=== PATIENT | male | born 1945 | race Caucasian/White ===

== ENCOUNTER 2021-03-31 12:39 | Inpatient (IN) | payer MEDICARE, OTHER ==
--- NOTE | 2021-03-31 13:44 | CR ---
Indication: Hypoxia Comparison: None available. Technique: Single AP view chest Findings: There is hyperinflation and chronic interstitial change. There is no focal consolidation, effusion, or pneumothorax. The cardiomediastinal silhouette is within normal limits. The bony thorax is grossly intact. Impression: Hyperinflation and chronic interstitial change without evidence of dense consolidation. Dictated by Casey Storey MD @ 03/31/2021 1:43:[address] Casey Storey @ Mar 31 2021 1:43PM
[2021-03-31 13:47] LABS: BLOOD UREA NITROGEN,BUN 45 mg/dL (7.0-18.0); CARBON DIOXIDE,CO2 16.6 mmol/L (21.0-32.0); CHLORIDE,CL 102 mmol/L (98-107); GLUCOSE RANDOM 181 mg/dL (74-106); SODIUM,NA 131 mmol/L (136-148)
[2021-03-31] MEDS ORDERED: Levothyroxine 100 MCG Vial IVPUSH ONE (14:08)
[2021-03-31] MEDS ORDERED: Hydrocortisone Sodium Succinate 100 MG/2 ML SDV IVPUSH ONE (14:09)
[2021-03-31] MEDS: Dextrose 5%-Lactated Ringers 1,000 ML IV SCH (14:38)
[2021-03-31] MEDS ORDERED: SODIUM CHLORIDE 0.9% IV ONE (14:45)
[2021-03-31] MEDS ORDERED: LEVOTHYROXINE IV ONE (14:45)
--- NOTE | 2021-03-31 16:36 | CT ---
INDICATION: Trauma, fall. TECHNIQUE: Head CT without contrast. COMPARISON: None FINDINGS: CSF spaces: Within normal limits for age. Brain parenchyma and extra-axial spaces: There are nonspecific low attenuation white matter changes consistent with chronic microvascular disease. No sign of mass, hemorrhage, or midline shift. Skull base and calvarium: The visualized paranasal sinuses and mastoid air cells demonstrate no acute or significant findings. The visualized orbits are grossly unremarkable. No skull fractures. IMPRESSION: No sign of acute injury or other significant finding. Please note that all CT scans at this facility use dose modulation, iterative reconstruction, and/or weight-based dosing when appropriate to reduce radiation dose to as low as reasonably achievable. Dictated by Eliseo Mooney MD @ 03/31/2021 4:35:[address] Eliseo Mooney @ Mar 31 2021 4:35PM
[2021-03-31] MEDS ORDERED: Ondansetron 4 MG Tab.DIS PO PRN (17:59)
[2021-03-31] MEDS ORDERED: LORazepam 2 MG/ML SDV IVPUSH ONE (18:46)
[2021-03-31] MEDS ORDERED: LORazepam 2 MG/ML SDV IVPUSH PRN (19:02)
[2021-03-31] MEDS: Acetaminophen 325 MG Tab PO PRN ×2 (19:07→23:59)
--- NOTE | 2021-03-31 19:26 | PCM.HP.2 ---
<Roque Turcios - Last Filed: 03/31/21 19:52> H&P History of Present Illness - General Date of Service: 03/31/21 Admit Problem/Dx: Admission Diagnosis/Problem Admission Diagnosis/Problem Hypothyroidism Source of Information: Patient, Family - History of Present Illness Initial Comments - Free Text/Narative: Patient is a 75-year-old male with a significant past medical history of type 2 diabetes, daily alcohol use, tobacco abuse and unexplained weight loss since August 2020: Presenting today with daughter's recommendation secondary to low blood sugar. Blood glucose this morning per daughter was 24 and episodes of hypoglycemia and dizziness have been ongoing since September 2020. Ambulatory dysfunction with increased episodes of falls were always attributed to low blood glucose especially since patient did respond to food/carbohydrate rich liquids thereafter. Patient will that was last seen by his primary care back in August 2020. Daughter endorses a fall 2 weeks prior causing abrasion over left scalp; this was an unwitnessed fall and patient did not have any subsequent symptoms per daughter. Since he seemed at baseline per daughter; they did not proceed to the ED at that time. Of note patient also did not take any of his diabetic medications including his Metformin and glimepiride for the past 3 weeks secondary to his low blood sugars. Alcohol use: 1-2 Guinness/beer per night with beer/wine Has been using edible marijuana treats to help increase appetite x 1 -month but this has not been helping. Weight loss: Patient is currently 77 pounds but was 95 pounds per daughter in August 2020 ED course: Blood pressure 107/59, bradycardia with a pulse rate of 56. Low temperature of 94.9 Lethargic Chest x-ray: Hyperinflation chronic interstitial change without evidence of dense consolidation CT head: No acute sign of acute injury and or significant findings Labs: Mild hyponatremia of 131. SHAHEEN of 1.9. Significantly elevated TSH of 29.89 and a free T4 0.75. Patient was given 100 mcg IV of levothyroxine and 100 mg of hydrocortisone 1 time patient was also subsequently started on D5-Lr 100 cc/hr Bedside: Daughter and patient endorses similar story as above. Does complain of restless leg and tingling in the feet and some discomfort in the lower back. Endorses low appetite but would like to drink some "guinny". Misses meals frequently and has at best 1/3 of a meal per day Bilateral Leg Pain Score (Numeric/FACES): 5 - Related Data Allergies/Adverse Reactions: Allergies Allergy/AdvReac Type Severity Reaction Status Date / Time No Known Allergies Allergy Verified 03/31/21 17:09 Home Medications: Home Meds Enalapril Maleate 10 mg PO DAILY 11/14/15 [History] Glimepiride [Amaryl] 1 mg PO DAILY 11/14/15 [History] metFORMIN [Glucophage XR] 500 mg PO BID 11/14/15 [History] Albuterol Sulfate 1 puff IN ASDIRECTED 03/31/21 [History] Montelukast [Singulair] 10 mg PO BEDTIME 03/31/21 [History] buPROPion HCL [Bupropion HCl Sr] 150 mg PO DAILY 03/31/21 [History] Past Medical History HEENT History: Reports: Hard of Hearing, Impaired Vision, Other (See Below) Other HEENT History: "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" Cardiovascular History: Reports: Hypertension Respiratory History: Reports: None Gastrointestinal History: Reports: Other (See Below) Other Gastrointestinal History: history of ulcers Genitourinary History: Reports: None Musculoskeletal History: Reports: Gout Neurological History: Reports: None, Other (See Below) Other Neuro History: Restless legs Psychiatric History: Reports: None Endocrine/Metabolic History: Reports: Diabetes, Type II Hematologic History: Reports: None Immunologic History: Reports: None Oncologic (Cancer) History: Reports: None Dermatologic History: Reports: None - Infectious Disease History Infectious Disease History: Reports: Chicken Pox, Mumps Other Infectious Disease History: childhood - Past Surgical History Head Surgeries/Procedures: Reports: None HEENT Surgical History: Reports: None Cardiovascular Surgical History: Reports: None Respiratory Surgical History: Reports: None GI Surgical History: Reports: EGD Male Surgical History: Reports: None Endocrine Surgical History: Reports: None Neurological Surgical History: Reports: None Musculoskeletal Surgical History: Reports: None Oncologic Surgical History: Reports: None Dermatological Surgical History: Reports: None Social & Family History - Family History Family Medical History: No Pertinent Family History Cardiac: Reports: [place] OBGYN: Reports: Endocrine/Metabolic: Reports: Diabetes, Type I - Tobacco Use Tobacco Use Status *Q: Current Every Day Tobacco User Years of Tobacco use: 50 Packs/Tins Daily: 0.5 - Caffeine Use Caffeine Use: Reports: Coffee - Alcohol Use Number of Drinks Per Day: 2 - Recreational Drug Use Recreational Drug Use: Yes Drug Use in Last 12 Months: Yes Recreational Drug Type: Reports: Marijuana/Hashish Recreational Drug Use Frequency: Daily H&P Review of Systems - Review of Systems: Review Of Systems: See Below General: Reports: Weakness, Fatigue. Denies: Fever, Chills HEENT: Reports: Headaches Pulmonary: Reports: No Symptoms Cardiovascular: Reports: Dyspnea on Exertion Gastrointestinal: Reports: Abdominal Pain, Constipation, Decreased Appetite. Denies: Diarrhea Genitourinary: Reports: No Symptoms Musculoskeletal: Reports: Back Pain, Leg Pain, Foot Pain Skin: Reports: Wound Psychiatric: Denies: Confusion Neurological: Reports: Weakness Hematologic/Lymphatic: Reports: Easy Bruising Exam - Exam Exam: See Below - Vital Signs Vital Signs: Last Vital Signs Temp 96.7 F L 03/31/21 17:18 Pulse 60 03/31/21 17:18 Resp 20 03/31/21 17:18 BP 107/57 L 03/31/21 17:18 Pulse Ox 100 03/31/21 17:18 Weight: 34.473 kg - Exam Quality Assessment: Skin Breakdown, Other (asthenic habitus; significant signs of weight loss/calorie deficiency ). No: Supplemental Oxygen General: Alert, Oriented, Mild Distress HEENT: EOMI, Mucosa Moist & [place] Neck: Supple, Trachea Midline Lungs: Clear to Auscultation, Normal Respiratory Effort Cardiovascular: Regular Rhythm, Bradycardia GI/Abdominal Exam: Soft, Other (mild tenderness w.o rebound tenderness diffusely ) Back Exam: Other (significant malnutrition w. low muscle mass: multiple area of skin breakdowns noted over lower back/sacrum ; ) Extremities: Other (low muscle mass: left foot : linear skin breakdow w. black escar noted over plantar aspect of fooot; overgrown toenails bilaterally..right foot: 1 cm circular black eschar noted over heel w.o surrounding erthema and or fluctuance . sensation intact tenderness noted over bilateral feet/plantar aspect) Skin: Wound Neuro Extensive - Mental Status: Alert, Oriented x3 Psychiatric: Alert, Other (lethargic but responsive ) - Patient Data Lab Results Last 24 hrs: Laboratory Results - last 24 hr 03/31/21 03/31/21 03/31/21 Range/Units 13:13 13:13 13:13 WBC 5.67 (4.0-11.0) K/uL RBC 3.15 L (4.50-5.90) M/uL Hgb 9.6 L (13.0-17.0) g/dL Hct 27.9 L (38.0-50.0) % MCV 88.6 (80.0-98.0) fL MCH 30.5 (27.0-32.0) pg MCHC 34.4 (31.0-37.0) g/dL RDW Std Deviation 49.7 (28.0-62.0) fl RDW Coeff of Ashley 16 H (11.0-15.0) % Plt Count 199 (150-400) K/uL MPV 9.60 (7.40-12.00) fL Neut % (Auto) 64.8 (48.0-80.0) % Lymph % (Auto) 23.5 (16.0-40.0) % [place] % (Auto) 8.5 (0.0-15.0) % Eos % (Auto) 3.0 (0.0-7.0) % Baso % (Auto) 0.2 (0.0-1.5) % Neut # (Auto) 3.7 (1.4-5.7) K/uL Lymph # (Auto) 1.3 (0.6-2.4) K/uL [place] # (Auto) 0.5 (0.0-0.8) K/uL Eos # (Auto) 0.2 (0.0-0.7) K/uL Baso # (Auto) 0.0 (0.0-0.1) K/uL Nucleated RBC % 0.0 /100WBC Nucleated RBCs # 0 K/uL INR 1.12 ABG pH (7.35-7.45) ABG pCO2 (35-45) mmHG ABG pO2 (80-105) mmHG ABG HCO3 (22-26) mEq/L ABG Total CO2 (23-27) mmol/L ABG Base Excess (-2.0-3.0) Sodium 131 L (136-148) mmol/L Potassium 5.0 (3.5-5.1) mmol/L Chloride 102 (98-107) mmol/L Carbon Dioxide 16.6 L (21.0-32.0) mmol/L BUN 45 H (7.0-18.0) mg/dL Creatinine 1.9 H (0.8-1.3) mg/dL Est Cr Clr Drug Dosing TNP Estimated GFR (MDRD) 34.8 ml/min Glucose 181 H (74-106) mg/dL Calcium 8.0 L (8.5-10.1) mg/dL Total Bilirubin 0.2 (0.2-1.0) mg/dL AST 94 H (15-37) IU/L ALT 34 (14-63) IU/L Alkaline Phosphatase 110 (46-116) U/L Creatine Kinase 355 H (26-308) U/L Troponin I < 0.050 (0.000-0.056) ng/mL Total Protein 6.1 L (6.4-8.2) g/dL Albumin 2.6 L (3.4-5.0) g/dL Globulin 3.5 (2.6-4.0) g/dL Albumin/Globulin Ratio 0.7 L (0.9-1.6) Free T4 0.75 L (0.76-1.46) ng/dL TSH 3rd Generation 29.89 H (0.36-3.74) uIU/mL Urine Color Urine Appearance Urine pH (5.0-8.0) Ur Specific [place] (1.001-1.035) Urine Protein (NEGATIVE) mg/dL Urine Glucose (UA) (NEGATIVE) mg/dL Urine Ketones (NEGATIVE) mg/dL Urine Occult Blood (NEGATIVE) Urine Nitrite (NEGATIVE) Urine Bilirubin (NEGATIVE) Urine Urobilinogen (<2.0) EU/dL Ur Leukocyte Esterase (NEGATIVE) SARS-CoV-2 RNA (DOMINGA) (NEGATIVE) 03/31/21 03/31/21 03/31/21 Range/Units 13:38 14:49 15:10 WBC (4.0-11.0) K/uL RBC (4.50-5.90) M/uL Hgb (13.0-17.0) g/dL Hct (38.0-50.0) % MCV (80.0-98.0) fL MCH (27.0-32.0) pg MCHC (31.0-37.0) g/dL RDW Std Deviation (28.0-62.0) fl RDW Coeff of Ashley (11.0-15.0) % Plt Count (150-400) K/uL MPV (7.40-12.00) fL Neut % (Auto) (48.0-80.0) % Lymph % (Auto) (16.0-40.0) % [place] % (Auto) (0.0-15.0) % Eos % (Auto) (0.0-7.0) % Baso % (Auto) (0.0-1.5) % Neut # (Auto) (1.4-5.7) K/uL Lymph # (Auto) (0.6-2.4) K/uL [place] # (Auto) (0.0-0.8) K/uL Eos # (Auto) (0.0-0.7) K/uL Baso # (Auto) (0.0-0.1) K/uL Nucleated RBC % /100WBC Nucleated RBCs # K/uL INR ABG pH 7.22 L (7.35-7.45) ABG pCO2 38 (35-45) mmHG ABG pO2 32 L* (80-105) mmHG ABG HCO3 15 L (22-26) mEq/L ABG Total CO2 15.1 L (23-27) mmol/L ABG Base Excess -11.6 L (-2.0-3.0) Sodium (136-148) mmol/L Potassium (3.5-5.1) mmol/L Chloride (98-107) mmol/L Carbon Dioxide (21.0-32.0) mmol/L BUN (7.0-18.0) mg/dL Creatinine (0.8-1.3) mg/dL Est Cr Clr Drug Dosing Estimated GFR (MDRD) ml/min Glucose (74-106) mg/dL Calcium (8.5-10.1) mg/dL Total Bilirubin (0.2-1.0) mg/dL AST (15-37) IU/L ALT (14-63) IU/L Alkaline Phosphatase (46-116) U/L Creatine Kinase (26-308) U/L Troponin I (0.000-0.056) ng/mL Total Protein (6.4-8.2) g/dL Albumin (3.4-5.0) g/dL Globulin (2.6-4.0) g/dL Albumin/Globulin Ratio (0.9-1.6) Free T4 (0.76-1.46) ng/dL TSH 3rd Generation (0.36-3.74) uIU/mL Urine Color YELLOW Urine Appearance CLEAR Urine pH 5.5 (5.0-8.0) Ur Specific [place] 1.025 (1.001-1.035) Urine Protein NEGATIVE (NEGATIVE) mg/dL Urine Glucose (UA) NEGATIVE (NEGATIVE) mg/dL Urine Ketones NEGATIVE (NEGATIVE) mg/dL Urine Occult Blood NEGATIVE (NEGATIVE) Urine Nitrite NEGATIVE (NEGATIVE) Urine Bilirubin NEGATIVE (NEGATIVE) Urine Urobilinogen 0.2 (<2.0) EU/dL Ur Leukocyte Esterase NEGATIVE (NEGATIVE) SARS-CoV-2 RNA (DOMINGA) NEGATIVE (NEGATIVE) Result Diagrams: 03/31/21 13:13 03/31/21 13:13 Sepsis Event Note - Evaluation Sepsis Screening Result: No Definite Risk - Focused Exam Vital Signs: Vital Signs Temp Temp Pulse Resp BP Pulse Ox 03/31/21 17:18 96.7 F L 60 20 107/57 L 100 03/31/21 16:35 96.4 F L 87 19 127/76 99 03/31/21 14:44 55 L 20 113/61 100 03/31/21 14:06 56 L 107/59 L 100 03/31/21 13:05 94.9 F L 59 L 15 93/52 L 99 - Problem List (1) Weakness SNOMED Code(s): 59845327 ICD Code: R53.1 - WEAKNESS Status: Acute Current Visit: Yes (2) Severe calorie deficiency SNOMED Code(s): 701382736 ICD Code: E43 - UNSPECIFIED SEVERE PROTEIN-CALORIE MALNUTRITION Status: Acute Current Visit: Yes (3) Severe hypothyroidism SNOMED Code(s): 70721822 ICD Code: E03.8 - OTHER SPECIFIED HYPOTHYROIDISM Status: Acute Current Visit: Yes (4) Alcohol abuse SNOMED Code(s): 04486757 ICD Code: F10.10 - ALCOHOL ABUSE, UNCOMPLICATED Status: Acute Current Visit: Yes (5) Diabetes mellitus SNOMED Code(s): 07063193 ICD Code: E11.9 - TYPE 2 DIABETES MELLITUS WITHOUT COMPLICATIONS Status: Acute Current Visit: No Problem List Initiated/Reviewed/Updated: Yes Orders Last 24hrs: Active Orders 24 hr Category Date Time Status Admission Status [Patient Status] [ADT] Stat ADT 03/31/21 15:45 Active Blood Glucose Check, Bedside [RC] TIDMEALS Care 03/31/21 17:59 Active CIWAA Assessment [RC] ASDIRECTED Care 03/31/21 18:45 Active EKG Documentation Completion [RC] STAT Care 03/31/21 12:50 Active Oxygen Therapy [RC] PRN Care 03/31/21 17:18 Active Oxygen Therapy [RC] PRN Care 03/31/21 17:59 Active Telemetry Monitoring [Cardiac Monitoring] [RC] . Care 03/31/21 18:32 Active DIRECTED Up With Assistance [RC] ASDIRECTED Care 03/31/21 17:18 Active VTE/DVT Education [RC] PER UNIT ROUTINE Care 03/31/21 17:18 Active VTE/DVT Education [RC] PER UNIT ROUTINE Care 03/31/21 17:59 Active Vital Signs [RC] Q4H Care 03/31/21 17:18 Active Vital Signs [RC] Q4H Care 03/31/21 17:59 Active Consult to Wound Care Services [CONS] Routine Cons 03/31/21 18:36 Active Regular Diet [DIET] Diet 03/31/21 Dinner Active CBC WITH AUTO DIFF [HEME] AM Lab 04/01/21 05:11 Ordered CBC WITH AUTO DIFF [HEME] AM Lab 04/02/21 05:11 Ordered CBC WITH AUTO DIFF [HEME] AM Lab 04/03/21 05:11 Ordered COMPREHENSIVE METABOLIC PN,CMP [CHEM] AM Lab 04/01/21 05:11 Ordered TSH [CHEM] AM Lab 04/01/21 05:11 Ordered TSH [CHEM] AM Lab 04/02/21 05:11 Ordered TSH [CHEM] AM Lab 04/03/21 05:11 Ordered Acetaminophen [TylenoL] Med 03/31/21 17:59 Active 650 mg PO Q4H PRN Dextrose 5%-Lactated Ringers 1,000 ml Med 03/31/21 14:30 Active IV ASDIRECTED LORazepam [Ativan] Med 03/31/21 19:02 Active See Protocol IVPUSH Q4H PRN Multivitamins [Tab-A-Nacho] Med 04/01/21 09:00 Active 1 tab PO DAILY Nicotine [Habitrol] Med 04/01/21 09:00 Active 7 mg TRDERM DAILY Ondansetron [Zofran ODT] Med 03/31/21 17:59 Active 4 mg PO Q4H PRN buPROPion [Wellbutrin SR] Med 04/01/21 09:00 Active 150 mg PO DAILY Foot Pump [OM.PC] Per Unit Routine Oth 03/31/21 18:00 Ordered Resuscitation Status Routine Resus Stat 03/31/21 17:59 Ordered Medication Orders Acetaminophen (Acetaminophen 325 Mg Tab) 650 mg PO Q4H PRN PRN Reason: Pain (Mild 1-3)/fever Last Admin: 03/31/21 19:07 Dose: 650 mg Documented by: REGINO Bupropion HCl (Bupropion 150 Mg Tab.Sr) 150 mg PO DAILY [facility] Dextrose/Lactated Ringer's (Dextrose 5%-Lactated Ringers) 1,000 mls @ 100 mls/hr IV ASDIRECTED ARELIS Last Admin: 03/31/21 14:38 Dose: 100 mls/hr Documented by: VIVIAN Lorazepam (Lorazepam 2 Mg/Ml Sdv) 0 mg IVPUSH Q4H PRN; Protocol PRN Reason: Withdrawal Symptoms Multivitamins/Minerals/Vitamin C (Multivitamin Tab) 1 tab PO DAILY [facility] Nicotine (Nicotine 7 Mg/24 Hr Patch) 7 mg TRDERM DAILY [facility] Ondansetron HCl (Ondansetron 4 Mg Tab.Dis) 4 mg PO Q4H PRN PRN Reason: nausea, able to take PO Assessment/Plan Comment:: Assessment: 1. Significant hypothyroidism 2. Normocytic anemia 3. Mild hyponatremia 4. Acute kidney injury 5. Transaminitis AST >ALT 6. Elevated creatinine kinase 7. Severe calorie deficiency 8. Decubitus ulcer 9. Tobacco abuse 10. Daily alcohol use 11. Past medical history: Type 2 diabetes Plan Admit to inpatient. DNR/DNI. I's and O's per routine. Vital signs per routine. Up with assistance Diet: Regular diet DVT prophylaxis: SCDs GI prophylaxis: Pantoprazole 40 daily 1. Symptomatic hypothyroidism: Ongoing and worsening most likely a chronic issue for quite some time. Has already received 100 mcg of levothyroxine IV; continue with 50 mcg IV levothyroxine daily and adjust accordingly; TSH rechecked daily; initiate telemetry due to T4 administration. Continue to monitor for response. Concerns about hypoglycemia, low appetite, calorie/protein deficiency could be related to significant hypothyroidism; will continue to monitor. 2. Mild hyponatremia: Replete with D5- LR; recheck in a.m. 3. Normocytic anemia: Currently stable; guaiac stool positive; however s ignificant skin breakdown ulcerations in lower back and around rectum; will continue to monitor for overt bleeding; patient may require colonoscopy if hemoglobin continues to drop. 4. SHAHEEN: Continue IV fluids; recheck BMP in a.m. 5. Transaminitis: Alcohol use pattern; initiate CIWA/Ativan protocol; continue IV fluids multivitamin and thiamine. 6. Significant caloric deficiency with low muscle mass: Ongoing chronic issue for many months; possibly as early as 2017; continue IV administration of thyroid medication, switch to full regular diet to encourage caloric intake; Continue to monitor electrolytes/cardiac function to avoid refeeding syndrome; telemetry ordered; BMP ordered in a.m. 7. Multiple areas of skin breakdown: Lower back/sacrum/gluteal cleft: Skin breakdown from low muscle mass and decreased activity; no apparent signs of infection; will offload with padding and enterostomal care has been ordered. Bilateral feet: Skin cracking with eschar noted over right foot and left plantar aspect; no overt signs of infection but tenderness is noted; may consider imaging however no overt signs of infection right now including no elevated white count. 8. Tobacco abuse: Half pack per day; 7 mcg nicotine patch ordered 9. Past medical history/type 2 diabetes: Hold all medications; monitor blood glucose; considered sliding scale insulin if needed; <Keith Pereyra - Last Filed: 03/31/21 22:12> H&P History of Present Illness - General Admit Problem/Dx: Admission Diagnosis/Problem Admission Diagnosis/Problem Hypothyroidism Exam - Vital Signs Vital Signs: Last Vital Signs Temp 35.7 C L 03/31/21 20:00 Pulse 68 03/31/21 20:00 Resp 20 03/31/21 20:00 BP 133/63 03/31/21 20:00 Pulse Ox 100 03/31/21 20:00 - Patient Data Lab Results Last 24 hrs: Laboratory Results - last 24 hr 03/31/21 03/31/21 03/31/21 Range/Units 13:13 13:13 13:13 WBC 5.67 (4.0-11.0) K/uL RBC 3.15 L (4.50-5.90) M/uL Hgb 9.6 L (13.0-17.0) g/dL Hct 27.9 L (38.0-50.0) % MCV 88.6 (80.0-98.0) fL MCH 30.5 (27.0-32.0) pg MCHC 34.4 (31.0-37.0) g/dL RDW Std Deviation 49.7 (28.0-62.0) fl RDW Coeff of Ashley 16 H (11.0-15.0) % Plt Count 199 (150-400) K/uL MPV 9.60 (7.40-12.00) fL Neut % (Auto) 64.8 (48.0-80.0) % Lymph % (Auto) 23.5 (16.0-40.0) % [place] % (Auto) 8.5 (0.0-15.0) % Eos % (Auto) 3.0 (0.0-7.0) % Baso % (Auto) 0.2 (0.0-1.5) % Neut # (Auto) 3.7 (1.4-5.7) K/uL Lymph # (Auto) 1.3 (0.6-2.4) K/uL [place] # (Auto) 0.5 (0.0-0.8) K/uL Eos # (Auto) 0.2 (0.0-0.7) K/uL Baso # (Auto) 0.0 (0.0-0.1) K/uL Nucleated RBC % 0.0 /100WBC Nucleated RBCs # 0 K/uL INR 1.12 ABG pH (7.35-7.45) ABG pCO2 (35-45) mmHG ABG pO2 (80-105) mmHG ABG HCO3 (22-26) mEq/L ABG Total CO2 (23-27) mmol/L ABG Base Excess (-2.0-3.0) Sodium 131 L (136-148) mmol/L Potassium 5.0 (3.5-5.1) mmol/L Chloride 102 (98-107) mmol/L Carbon Dioxide 16.6 L (21.0-32.0) mmol/L BUN 45 H (7.0-18.0) mg/dL Creatinine 1.9 H (0.8-1.3) mg/dL Est Cr Clr Drug Dosing TNP Estimated GFR (MDRD) 34.8 ml/min Glucose 181 H (74-106) mg/dL Hemoglobin A1c (4.5 - 6.2) % Calcium 8.0 L (8.5-10.1) mg/dL Total Bilirubin 0.2 (0.2-1.0) mg/dL AST 94 H (15-37) IU/L ALT 34 (14-63) IU/L Alkaline Phosphatase 110 (46-116) U/L Creatine Kinase 355 H (26-308) U/L Troponin I < 0.050 (0.000-0.056) ng/mL Total Protein 6.1 L (6.4-8.2) g/dL Albumin 2.6 L (3.4-5.0) g/dL Globulin 3.5 (2.6-4.0) g/dL Albumin/Globulin Ratio 0.7 L (0.9-1.6) Free T4 0.75 L (0.76-1.46) ng/dL TSH 3rd Generation 29.89 H (0.36-3.74) uIU/mL Urine Color Urine Appearance Urine pH (5.0-8.0) Ur Specific [place] (1.001-1.035) Urine Protein (NEGATIVE) mg/dL Urine Glucose (UA) (NEGATIVE) mg/dL Urine Ketones (NEGATIVE) mg/dL Urine Occult Blood (NEGATIVE) Urine Nitrite (NEGATIVE) Urine Bilirubin (NEGATIVE) Urine Urobilinogen (<2.0) EU/dL Ur Leukocyte Esterase (NEGATIVE) SARS-CoV-2 RNA (DOMINGA) (NEGATIVE) 03/31/21 03/31/21 03/31/21 Range/Units 13:13 13:38 14:49 WBC (4.0-11.0) K/uL RBC (4.50-5.90) M/uL Hgb (13.0-17.0) g/dL Hct (38.0-50.0) % MCV (80.0-98.0) fL MCH (27.0-32.0) pg MCHC (31.0-37.0) g/dL RDW Std Deviation (28.0-62.0) fl RDW Coeff of [place] (11.0-15.0) % Plt Count (150-400) K/uL MPV (7.40-12.00) fL Neut % (Auto) (48.0-80.0) % Lymph % (Auto) (16.0-40.0) % [place] % (Auto) (0.0-15.0) % Eos % (Auto) (0.0-7.0) % Baso % (Auto) (0.0-1.5) % Neut # (Auto) (1.4-5.7) K/uL Lymph # (Auto) (0.6-2.4) K/uL [place] # (Auto) (0.0-0.8) K/uL Eos # (Auto) (0.0-0.7) K/uL Baso # (Auto) (0.0-0.1) K/uL Nucleated RBC % /100WBC Nucleated RBCs # K/uL INR ABG pH 7.22 L (7.35-7.45) ABG pCO2 38 (35-45) mmHG ABG pO2 32 L* (80-105) mmHG ABG HCO3 15 L (22-26) mEq/L ABG Total CO2 15.1 L (23-27) mmol/L ABG Base Excess -11.6 L (-2.0-3.0) Sodium (136-148) mmol/L Potassium (3.5-5.1) mmol/L Chloride (98-107) mmol/L Carbon Dioxide (21.0-32.0) mmol/L BUN (7.0-18.0) mg/dL Creatinine (0.8-1.3) mg/dL Est Cr Clr Drug Dosing Estimated GFR (MDRD) ml/min Glucose (74-106) mg/dL Hemoglobin A1c 8.6 H (4.5 - 6.2) % Calcium (8.5-10.1) mg/dL Total Bilirubin (0.2-1.0) mg/dL AST (15-37) IU/L ALT (14-63) IU/L Alkaline Phosphatase (46-116) U/L Creatine Kinase (26-308) U/L Troponin I (0.000-0.056) ng/mL Total Protein (6.4-8.2) g/dL Albumin (3.4-5.0) g/dL Globulin (2.6-4.0) g/dL Albumin/Globulin Ratio (0.9-1.6) Free T4 (0.76-1.46) ng/dL TSH 3rd Generation (0.36-3.74) uIU/mL Urine Color Urine Appearance Urine pH (5.0-8.0) Ur Specific [place] (1.001-1.035) Urine Protein (NEGATIVE) mg/dL Urine Glucose (UA) (NEGATIVE) mg/dL Urine Ketones (NEGATIVE) mg/dL Urine Occult Blood (NEGATIVE) Urine Nitrite (NEGATIVE) Urine Bilirubin (NEGATIVE) Urine Urobilinogen (<2.0) EU/dL Ur Leukocyte Esterase (NEGATIVE) SARS-CoV-2 RNA (DOMINGA) NEGATIVE (NEGATIVE) 03/31/21 Range/Units 15:10 WBC (4.0-11.0) K/uL RBC (4.50-5.90) M/uL Hgb (13.0-17.0) g/dL Hct (38.0-50.0) % MCV (80.0-98.0) fL MCH (27.0-32.0) pg MCHC (31.0-37.0) g/dL RDW Std Deviation (28.0-62.0) fl RDW Coeff of [place] (11.0-15.0) % Plt Count (150-400) K/uL MPV (7.40-12.00) fL Neut % (Auto) (48.0-80.0) % Lymph % (Auto) (16.0-40.0) % [place] % (Auto) (0.0-15.0) % Eos % (Auto) (0.0-7.0) % Baso % (Auto) (0.0-1.5) % Neut # (Auto) (1.4-5.7) K/uL Lymph # (Auto) (0.6-2.4) K/uL [place] # (Auto) (0.0-0.8) K/uL Eos # (Auto) (0.0-0.7) K/uL Baso # (Auto) (0.0-0.1) K/uL Nucleated RBC % /100WBC Nucleated RBCs # K/uL INR ABG pH (7.35-7.45) ABG pCO2 (35-45) mmHG ABG pO2 (80-105) mmHG ABG HCO3 (22-26) mEq/L ABG Total CO2 (23-27) mmol/L ABG Base Excess (-2.0-3.0) Sodium (136-148) mmol/L Potassium (3.5-5.1) mmol/L Chloride (98-107) mmol/L Carbon Dioxide (21.0-32.0) mmol/L BUN (7.0-18.0) mg/dL Creatinine (0.8-1.3) mg/dL Est Cr Clr Drug Dosing Estimated GFR (MDRD) ml/min Glucose (74-106) mg/dL Hemoglobin A1c (4.5 - 6.2) % Calcium (8.5-10.1) mg/dL Total Bilirubin (0.2-1.0) mg/dL AST (15-37) IU/L ALT (14-63) IU/L Alkaline Phosphatase (46-116) U/L Creatine Kinase (26-308) U/L Troponin I (0.000-0.056) ng/mL Total Protein (6.4-8.2) g/dL Albumin (3.4-5.0) g/dL Globulin (2.6-4.0) g/dL Albumin/Globulin Ratio (0.9-1.6) Free T4 (0.76-1.46) ng/dL TSH 3rd Generation (0.36-3.74) uIU/mL Urine Color YELLOW Urine Appearance CLEAR Urine pH 5.5 (5.0-8.0) Ur Specific [place] 1.025 (1.001-1.035) Urine Protein NEGATIVE (NEGATIVE) mg/dL Urine Glucose (UA) NEGATIVE (NEGATIVE) mg/dL Urine Ketones NEGATIVE (NEGATIVE) mg/dL Urine Occult Blood NEGATIVE (NEGATIVE) Urine Nitrite NEGATIVE (NEGATIVE) Urine Bilirubin NEGATIVE (NEGATIVE) Urine Urobilinogen 0.2 (<2.0) EU/dL Ur Leukocyte Esterase NEGATIVE (NEGATIVE) SARS-CoV-2 RNA (DOMINGA) (NEGATIVE) Result Diagrams: 03/31/21 13:13 03/31/21 13:13 Sepsis Event Note - Focused Exam Vital Signs: Vital Signs Temp Temp Pulse Resp BP Pulse Ox 03/31/21 20:00 35.7 C L 68 20 133/63 100 03/31/21 17:18 35.9 C L 60 20 107/57 L 100 03/31/21 16:35 35.8 C L 87 19 127/76 99 03/31/21 14:44 55 L 20 113/61 100 03/31/21 14:06 56 L 107/59 L 100 03/31/21 13:05 34.9 C L 59 L 15 93/52 L 99 Orders Last 24hrs: Active Orders 24 hr Category Date Time Status Admission Status [Patient Status] [ADT] Stat ADT 03/31/21 15:45 Active Blood Glucose Check, Bedside [RC] TIDMEALS Care 03/31/21 17:59 Active CIWAA Assessment [RC] Q4H Care 03/31/21 18:45 Active Oxygen Therapy [RC] PRN Care 03/31/21 17:18 Active Oxygen Therapy [RC] PRN Care 03/31/21 17:59 Active Telemetry Monitoring [Cardiac Monitoring] [RC] . Care 03/31/21 18:32 Active DIRECTED Up With Assistance [RC] ASDIRECTED Care 03/31/21 17:18 Active VTE/DVT Education [RC] PER UNIT ROUTINE Care 03/31/21 17:18 Active VTE/DVT Education [RC] PER UNIT ROUTINE Care 03/31/21 17:59 Active Vital Signs [RC] Q4H Care 03/31/21 17:18 Active Vital Signs [RC] Q4H Care 03/31/21 17:59 Active Consult to Wound Care Services [CONS] Routine Cons 03/31/21 18:36 Active Regular Diet [DIET] Diet 03/31/21 Dinner Active CBC WITH AUTO DIFF [HEME] AM Lab 04/01/21 05:11 Ordered CBC WITH AUTO DIFF [HEME] AM Lab 04/02/21 05:11 Ordered CBC WITH AUTO DIFF [HEME] AM Lab 04/03/21 05:11 Ordered COMPREHENSIVE METABOLIC PN,CMP [CHEM] AM Lab 04/01/21 05:11 Ordered TSH [CHEM] AM Lab 04/01/21 05:11 Ordered TSH [CHEM] AM Lab 04/02/21 05:11 Ordered TSH [CHEM] AM Lab 04/03/21 05:11 Ordered Acetaminophen [TylenoL] Med 03/31/21 17:59 Active 650 mg PO Q4H PRN Dextrose 5%-Lactated Ringers 1,000 ml Med 03/31/21 14:30 Active IV ASDIRECTED LORazepam [Ativan] Med 03/31/21 19:02 Active See Protocol IVPUSH Q4H PRN Levothyroxine [Synthroid] Med 04/01/21 09:00 Active 50 mcg IVPUSH DAILY Multivitamins [Tab-A-Nacho] Med 04/01/21 09:00 Active 1 tab PO DAILY Nicotine [Habitrol] Med 04/01/21 09:00 Active 7 mg TRDERM DAILY Ondansetron [Zofran ODT] Med 03/31/21 17:59 Active 4 mg PO Q4H PRN buPROPion [Wellbutrin SR] Med 04/01/21 09:00 Active 150 mg PO DAILY Foot Pump [OM.PC] Per Unit Routine Oth 03/31/21 18:00 Ordered Resuscitation Status Routine Resus Stat 03/31/21 17:59 Ordered Medication Orders Acetaminophen (Acetaminophen 325 Mg Tab) 650 mg PO Q4H PRN PRN Reason: Pain (Mild 1-3)/fever Last Admin: 03/31/21 19:07 Dose: 650 mg Documented by: REGINO Bupropion HCl (Bupropion 150 Mg Tab.Sr) 150 mg PO DAILY ARELIS Dextrose/Lactated Ringer's (Dextrose 5%-Lactated Ringers) 1,000 mls @ 100 mls/hr IV ASDIRECTED ARELIS Last Admin: 03/31/21 14:38 Dose: 100 mls/hr Documented by: VIVIAN Levothyroxine Sodium (Levothyroxine 100 Mcg Vial) 50 mcg IVPUSH DAILY ARELIS Lorazepam (Lorazepam 2 Mg/Ml Sdv) 0 mg IVPUSH Q4H PRN; Protocol PRN Reason: Withdrawal Symptoms Multivitamins/Minerals/Vitamin C (Multivitamin Tab) 1 tab PO DAILY ARELIS Nicotine (Nicotine 7 Mg/24 Hr Patch) 7 mg TRDERM DAILY AREL[facility] Ondansetron HCl (Ondansetron 4 Mg Tab.Dis) 4 mg PO Q4H PRN PRN Reason: nausea, able to take PO
--- NOTE | 2021-03-31 19:44 | EDM.PDOC ---
ED HPI GENERAL MEDICAL PROBLEM - General Chief Complaint: General Stated Complaint: glucose about 20 Time Seen by Provider: 03/31/21 13:02 Source of Information: Reports: Patient, Family - History of Present Illness INITIAL COMMENTS - FREE TEXT/NARRATIVE: CHIEF COMPLAINT(S): Hypoglycemia HISTORY OF PRESENT ILLNESS: This is a 75-year-old man and with a past medical history of diabetes mellitus and hypertension not on insulin who comes to the emergency department with a chief complaint of hypoglycemia. The patient currently states that he does not have any chest pain, shortness of breath, abdominal pain, nausea or vomiting. He denies any fevers or chills. He denies any symptoms whatsoever. Per the daughter who is at bedside she stated that she brought him to the emergency department because for the past 2 weeks his blood sugars have been really low in the morning. She did provide us with a calendar with his glucose levels and in the morning they range from 23-45. She states that he has not had a great appetite and has not been eating other than that there was no other changes. She denies any syncope, head injury or any other concerns REVIEW OF SYSTEMS: Constitutional: Denies fever, chills. Eyes: Denies eye pain Ears, Nose, Mouth, & Throat: Denies earache Cardiovascular: Denies chest pain Respiratory: Denies shortness of breath Gastrointestinal: Denies Nausea, vomiting, diarrhea, hematochezia. Genitourinary: Denies hematuria Skin:Denies a rash MSK: Denies joint pain Neurological: Denies blurred vision Psychiatric: Denies depression PAST MEDICAL HISTORY: As per history of present illness and as reviewed below otherwise noncontributory. SURGICAL HISTORY: As per history of present illness and as reviewed below otherwise noncontributory. SOCIAL HISTORY: As per history of present illness and as reviewed below otherwise noncontributory. FAMILY HISTORY: As per history of present illness and as reviewed below otherwise noncontributory. EXAMINATION OF ORGAN SYSTEMS/BODY AREAS: Constitutional: Blood pressure was 93/52, heart rate 59, respiratory rate 15 with an oxygen saturation of 99% on room air. Rectal temperature was 34.9 General: Cachectic appearing elderly man who is in no acute distress Psychiatric: Appropriate mood and affect. Eyes: No scleral icterus or conjunctival erythema left pupil was 2 mm and right pupil was 3 mm. Pupils are reactive. No nystagmus noted. ENMT: Dry mucous membranes. No pharyngeal erythema. Cardiovascular: Bradycardic with regular rhythm no gallops, murmurs, or rubs. Bilateral upper extremity pulses symmetric and intact. No peripheral edema. No JVD. Respiratory: Lungs clear to auscultation bilaterally. No wheezes, rales, or rhonchi. Gastrointestinal: Soft, non-tender, non-distended. Normoactive bowel sounds Genitourinary: No suprapubic tenderness Musculoskeletal: Normal range of motion. Skin: Patient does have bruising on bilateral arms. No evidence of petechiae. There is a stage I decubitus ulcer. No purulent drainage or surrounding cellulitis Neurological: Alert and oriented x4. GCS of 15 MEDICAL DECISION MAKING AND COURSE IN THE ED WITH INTERPRETATION/REVIEW OF DIAGNOSTIC STUDIES: This is a 75-year-old man with a past medical history of diabetes and hypertension not on insulin who comes to the emergency department with persistent hypoglycemia who is hypothermic, bradycardic, borderline hypotensive and severely cachectic. At this time we did obtain an EKG which did not reveal any acute signs of ischemia. At this time differential remains broad including blood loss anemia, hypothyroidism, ACS, infection. Will obtain CBC, CMP, TSH, T4, and urinalysis. Will obtain a Covid swab. We initially had trouble obtaining a pulse oximetry therefore I did obtain an ABG. The patient's daughter states that the asymmetric pupils are something that she has not seen therefore we will obtain a CT head without contrast. Patient has no focal deficit. personnel monitor did show sinus rhythm at a bradycardic rate. Pulse oximetry was unobtainable. We did place a bear hugger on the patient. AB.//15.1 -> likely venous sample. We did check the patient's pulse oximetry at this time which was 100% on room air. Time: 1257 Twelve-lead EKG interpreted by myself. Sinus bradycardia at a rate of 59 beats per minute. Normal axis. LA interval is 191 ms. QRS duration is [address] segments are normal without elevations or depressions. No T wave inversions no Q waves present. Hypertrophy not noted. No prior EKGs. Interpretation: Sinus bradycardia Laboratory: CBC reveals a normocytic anemia with a hemoglobin of 9.6 and hematocrit of 27.9 which is decreased from prior otherwise no abnormality. INR is normal. CMP reveals hyponatremia at 131, metabolic acidosis with a bicarbonate of 16.6, acute kidney injury with a BUN of 45 and creatinine of 1.9. Glucose was 181. Calcium was decreased at 8.0, AST is mildly elevated at 9.4. Hypoalbuminemia at 2.6. CPK is 355. Troponin is negative. TSH is 29.89, T4 is 0.75. Covid is negative. Urinalysis was a clean catch and was negative for leukocyte esterase, negative for nitrites, and negative for blood. Interpretation: Negative. After initial labs I did reevaluate the patient and did perform a rectal examination. The stool was brown, not black or red. However it was guaiac positive. At this time I do not believe the patient is having a massive GI bleed. Given the bradycardia, hypotension, hypoglycemia that is recorded by daughter I do suspect the possibility of severe hypothyroidism on the verge of myxedema coma. The patient is alert and oriented x4 at this time therefore we will provide the patient with 100 mcg of levothyroxine. I do not believe the patient requires 300 mcg at this time. We will also provide the patient with hydrocortisone IV. The radiological images were viewed by myself along with reading the report from the radiologist. Chest x-ray reveals hyperinflation and chronic interstitial changes without evidence of dense consolidation. CT head without contrast does not reveal any acute intracranial hemorrhage or abnormality. We did start the patient on D5 normal saline at maintenance and on reevaluation his blood pressure had improved to 107/59, the patient's heart rate remained at 56, after placing the patient on bear hugger his temperature did increase to 35.8. I did have a discussion with the daughter and the patient at bedside. I discussed that I would like to admit him to the hospital. They were amenable to this plan. I contacted Dr. Pereyra and he accepted the admission. DISPOSITION: The patient is admitted to the hospital in stable condition CONDITION: Serious PROCEDURES: Cardiac monitoring interpretation, pulse oximetry interpretation FINAL IMPRESSION(S)/DIAGNOSES: 1. Acute hypothermia likely secondary to severe hypothyroidism 2. Acute bradycardia likely secondary to hypothermia and severe hypothyroidism 3. Acute normocytic anemia likely secondary to possible GI bleed 4. Acute kidney injury 5. Acute stage I decubitus ulcer Critical Care Procedure Note Authorized and performed by: Vikram Aragon M.D. Critical Care Time: 60 minutes Due to a high probability of clinically significant, life threatening deterioration, the patient required my highest level of preparedness to intervene emergently and I personally spent this critical care time directly and personally managing the patient. This critical care time included obtaining a history, examining the patient, pulse oximetry; ordering and review of studies; arranging urgent treatment with development of a management plan; evaluation of a patients reponse to treatment; frequent assessment; and discussions with other providers. This critical care time was performed to assess and manage the high probability of imminent, life threatening deterioration that could result in multiorgan failure. It was exclusive of separate billable procedures and treating other patients. Please see MDM section and rest of the note for further information on patient assessment and treatment. Please see MDM section and rest of the note for further information on patient assessment and treatment. Vikram Aragon M.D. Bilateral Leg Pain Score (Numeric/FACES): 5 - Related Data Allergies Allergy/AdvReac Type Severity Reaction Status Date / Time No Known Allergies Allergy Verified 03/31/21 17:09 Home Meds: Home Meds Enalapril Maleate 10 mg PO DAILY 11/14/15 [History] Glimepiride [Amaryl] 1 mg PO DAILY 11/14/15 [History] metFORMIN [Glucophage XR] 500 mg PO BID 11/14/15 [History] Albuterol Sulfate 1 puff IN ASDIRECTED 03/31/21 [History] Montelukast [Singulair] 10 mg PO BEDTIME 03/31/21 [History] buPROPion HCL [Bupropion HCl Sr] 150 mg PO DAILY 03/31/21 [History] Past Medical History HEENT History: Reports: Hard of Hearing, Impaired Vision, Other (See Below) Other HEENT History: "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" Cardiovascular History: Reports: Hypertension Respiratory History: Reports: None Gastrointestinal History: Reports: Other (See Below) Other Gastrointestinal History: history of ulcers Genitourinary History: Reports: None Musculoskeletal History: Reports: Gout Neurological History: Reports: None, Other (See Below) Other Neuro History: Restless legs Psychiatric History: Reports: None Endocrine/Metabolic History: Reports: Diabetes, Type II Hematologic History: Reports: None Immunologic History: Reports: None Oncologic (Cancer) History: Reports: None Dermatologic History: Reports: None - Infectious Disease History Infectious Disease History: Reports: Chicken Pox, Mumps Other Infectious Disease History: childhood - Past Surgical History Head Surgeries/Procedures: Reports: None HEENT Surgical History: Reports: None Cardiovascular Surgical History: Reports: None Respiratory Surgical History: Reports: None GI Surgical History: Reports: EGD Male Surgical History: Reports: None Endocrine Surgical History: Reports: None Neurological Surgical History: Reports: None Musculoskeletal Surgical History: Reports: None Oncologic Surgical History: Reports: None Dermatological Surgical History: Reports: None Social & Family History - Family History Family Medical History: No Pertinent Family History Cardiac: Reports: [place]: Reports: Endocrine/Metabolic: Reports: Diabetes, Type I - Tobacco Use Tobacco Use Status *Q: Current Every Day Tobacco User Years of Tobacco use: 50 Packs/Tins Daily: 0.5 - Caffeine Use Caffeine Use: Reports: Coffee - Alcohol Use Number of Drinks Per Day: 2 - Recreational Drug Use Recreational Drug Use: Yes Drug Use in Last 12 Months: Yes Recreational Drug Type: Reports: Marijuana/Hashish Recreational Drug Use Frequency: Daily ED ROS GENERAL - Review of Systems Review Of Systems: See Below ED EXAM, GENERAL - Physical Exam Exam: See Below GI/Abdominal: Soft, Other (mild tenderness w.o rebound tenderness diffusely ) Back Exam: Other (significant malnutrition w. low muscle mass: multiple area of skin breakdowns noted over lower back/sacrum ; ) Extremities: Other (low muscle mass: left foot : linear skin breakdow w. black escar noted over plantar aspect of fooot; overgrown toenails bilaterally..right foot: 1 cm circular black eschar noted over heel w.o surrounding erthema and or fluctuance . sensation intact tenderness noted over bilateral feet/plantar aspect) Course - Vital Signs Last Recorded V/S: Last Vital Signs Temp 35.9 C L 03/31/21 17:18 Pulse 60 03/31/21 17:18 Resp 20 03/31/21 17:18 BP 107/57 L 03/31/21 17:18 Pulse Ox 100 03/31/21 17:18 - Orders/Labs/Meds Orders: Active Orders 24 hr Category Date Time Status EKG Documentation Completion [RC] STAT Care 03/31/21 12:50 Active Dextrose 5%-Lactated Ringers 1,000 ml Med 03/31/21 14:30 Active IV ASDIRECTED Medication Orders Acetaminophen (Acetaminophen 325 Mg Tab) 650 mg PO Q4H PRN PRN Reason: Pain (Mild 1-3)/fever Last Admin: 03/31/21 19:07 Dose: 650 mg Documented by: REGINO Bupropion HCl (Bupropion 150 Mg Tab.Sr) 150 mg PO DAILY ARELIS Dextrose/Lactated Ringer's (Dextrose 5%-Lactated Ringers) 1,000 mls @ 100 mls/ hr IV ASDIRECTED ARELIS Last Admin: 03/31/21 14:38 Dose: 100 mls/hr Documented by: VIVIAN Levothyroxine Sodium (Levothyroxine 100 Mcg Vial) 50 mcg IVPUSH DAILY [facility] Lorazepam (Lorazepam 2 Mg/Ml Sdv) 0 mg IVPUSH Q4H PRN; Protocol PRN Reason: Withdrawal Symptoms Multivitamins/Minerals/Vitamin C (Multivitamin Tab) 1 tab PO DAILY [facility] Nicotine (Nicotine 7 Mg/24 Hr Patch) 7 mg TRDERM DAILY ARELIS Ondansetron HCl (Ondansetron 4 Mg Tab.Dis) 4 mg PO Q4H PRN PRN Reason: nausea, able to take PO Labs: Laboratory Tests 03/31/21 03/31/21 03/31/21 Range/Units 13:13 13:13 13:13 WBC 5.67 (4.0-11.0) K/uL RBC 3.15 L (4.50-5.90) M/uL Hgb 9.6 L (13.0-17.0) g/dL Hct 27.9 L (38.0-50.0) % MCV 88.6 (80.0-98.0) fL MCH 30.5 (27.0-32.0) pg MCHC 34.4 (31.0-37.0) g/dL RDW Std Deviation 49.7 (28.0-62.0) fl RDW Coeff of Ashley 16 H (11.0-15.0) % Plt Count 199 (150-400) K/uL MPV 9.60 (7.40-12.00) fL Neut % (Auto) 64.8 (48.0-80.0) % Lymph % (Auto) 23.5 (16.0-40.0) % Mccracken % (Auto) 8.5 (0.0-15.0) % Eos % (Auto) 3.0 (0.0-7.0) % Baso % (Auto) 0.2 (0.0-1.5) % Neut # (Auto) 3.7 (1.4-5.7) K/uL Lymph # (Auto) 1.3 (0.6-2.4) K/uL Mccracken # (Auto) 0.5 (0.0-0.8) K/uL Eos # (Auto) 0.2 (0.0-0.7) K/uL Baso # (Auto) 0.0 (0.0-0.1) K/uL Nucleated RBC % 0.0 /100WBC Nucleated RBCs # 0 K/uL INR 1.12 ABG pH (7.35-7.45) ABG pCO2 (35-45) mmHG ABG pO2 (80-105) mmHG ABG HCO3 (22-26) mEq/L ABG Total CO2 (23-27) mmol/L ABG Base Excess (-2.0-3.0) Sodium 131 L (136-148) mmol/L Potassium 5.0 (3.5-5.1) mmol/L Chloride 102 (98-107) mmol/L Carbon Dioxide 16.6 L (21.0-32.0) mmol/L BUN 45 H (7.0-18.0) mg/dL Creatinine 1.9 H (0.8-1.3) mg/dL Est Cr Clr Drug Dosing TNP Estimated GFR (MDRD) 34.8 ml/min Glucose 181 H (74-106) mg/dL Calcium 8.0 L (8.5-10.1) mg/dL Total Bilirubin 0.2 (0.2-1.0) mg/dL AST 94 H (15-37) IU/L ALT 34 (14-63) IU/L Alkaline Phosphatase 110 (46-116) U/L Creatine Kinase 355 H (26-308) U/L Troponin I < 0.050 (0.000-0.056) ng/mL Total Protein 6.1 L (6.4-8.2) g/dL Albumin 2.6 L (3.4-5.0) g/dL Globulin 3.5 (2.6-4.0) g/dL Albumin/Globulin Ratio 0.7 L (0.9-1.6) Free T4 0.75 L (0.76-1.46) ng/dL TSH 3rd Generation 29.89 H (0.36-3.74) uIU/mL Urine Color Urine Appearance Urine pH (5.0-8.0) Ur Specific Lester (1.001-1.035) Urine Protein (NEGATIVE) mg/dL Urine Glucose (UA) (NEGATIVE) mg/dL Urine Ketones (NEGATIVE) mg/dL Urine Occult Blood (NEGATIVE) Urine Nitrite (NEGATIVE) Urine Bilirubin (NEGATIVE) Urine Urobilinogen (<2.0) EU/dL Ur Leukocyte Esterase (NEGATIVE) SARS-CoV-2 RNA (DOMINGA) (NEGATIVE) 03/31/21 03/31/21 03/31/21 Range/Units 13:38 14:49 15:10 WBC (4.0-11.0) K/uL RBC (4.50-5.90) M/uL Hgb (13.0-17.0) g/dL Hct (38.0-50.0) % MCV (80.0-98.0) fL MCH (27.0-32.0) pg MCHC (31.0-37.0) g/dL RDW Std Deviation (28.0-62.0) fl RDW Coeff of Ashley (11.0-15.0) % Plt Count (150-400) K/uL MPV (7.40-12.00) fL Neut % (Auto) (48.0-80.0) % Lymph % (Auto) (16.0-40.0) % Mccracken % (Auto) (0.0-15.0) % Eos % (Auto) (0.0-7.0) % Baso % (Auto) (0.0-1.5) % Neut # (Auto) (1.4-5.7) K/uL Lymph # (Auto) (0.6-2.4) K/uL Mccracken # (Auto) (0.0-0.8) K/uL Eos # (Auto) (0.0-0.7) K/uL Baso # (Auto) (0.0-0.1) K/uL Nucleated RBC % /100WBC Nucleated RBCs # K/uL INR ABG pH 7.22 L (7.35-7.45) ABG pCO2 38 (35-45) mmHG ABG pO2 32 L* (80-105) mmHG ABG HCO3 15 L (22-26) mEq/L ABG Total CO2 15.1 L (23-27) mmol/L ABG Base Excess -11.6 L (-2.0-3.0) Sodium (136-148) mmol/L Potassium (3.5-5.1) mmol/L Chloride (98-107) mmol/L Carbon Dioxide (21.0-32.0) mmol/L BUN (7.0-18.0) mg/dL Creatinine (0.8-1.3) mg/dL Est Cr Clr Drug Dosing Estimated GFR (MDRD) ml/min Glucose (74-106) mg/dL Calcium (8.5-10.1) mg/dL Total Bilirubin (0.2-1.0) mg/dL AST (15-37) IU/L ALT (14-63) IU/L Alkaline Phosphatase (46-116) U/L Creatine Kinase (26-308) U/L Troponin I (0.000-0.056) ng/mL Total Protein (6.4-8.2) g/dL Albumin (3.4-5.0) g/dL Globulin (2.6-4.0) g/dL Albumin/Globulin Ratio (0.9-1.6) Free T4 (0.76-1.46) ng/dL TSH 3rd Generation (0.36-3.74) uIU/mL Urine Color YELLOW Urine Appearance CLEAR Urine pH 5.5 (5.0-8.0) Ur Specific Lester 1.025 (1.001-1.035) Urine Protein NEGATIVE (NEGATIVE) mg/dL Urine Glucose (UA) NEGATIVE (NEGATIVE) mg/dL Urine Ketones NEGATIVE (NEGATIVE) mg/dL Urine Occult Blood NEGATIVE (NEGATIVE) Urine Nitrite NEGATIVE (NEGATIVE) Urine Bilirubin NEGATIVE (NEGATIVE) Urine Urobilinogen 0.2 (<2.0) EU/dL Ur Leukocyte Esterase NEGATIVE (NEGATIVE) SARS-CoV-2 RNA (DOMINGA) NEGATIVE (NEGATIVE) Meds: Medications Generic Name Dose Route Start Last Admin Trade Name Freq PRN Reason Stop Dose Admin Acetaminophen 650 mg 03/31/21 17:59 03/31/21 19:07 Acetaminophen 325 Mg Tab PO 650 mg Q4H PRN Administration Pain (Mild 1-3)/fever Bupropion HCl 150 mg 04/01/21 09:00 Bupropion 150 Mg Tab.Sr PO DAILY ARELIS Dextrose/Lactated Ringer's 1,000 mls @ 100 mls/hr 03/31/21 14:30 03/31/21 14:38 Dextrose 5%-Lactated Ringers IV 100 mls/hr ASDIRECTED ARELIS Administration Levothyroxine Sodium 50 mcg 04/01/21 09:00 Levothyroxine 100 Mcg Vial IVPUSH DAILY ARELIS Lorazepam 0 mg 03/31/21 19:02 Lorazepam 2 Mg/Ml Sdv IVPUSH Q4H PRN Withdrawal Symptoms Protocol Multivitamins/Minerals/Vitamin C 1 tab 04/01/21 09:00 Multivitamin Tab PO DAILY ARELIS Nicotine 7 mg 04/01/21 09:00 Nicotine 7 Mg/24 Hr Patch TRDERM DAILY [facility] Ondansetron HCl 4 mg 03/31/21 17:59 Ondansetron 4 Mg Tab.Dis PO Q4H PRN nausea, able to take PO Discontinued Medications Generic Name Dose Route Start Last Admin Trade Name Freq PRN Reason Stop Dose Admin Hydrocortisone Sodium Succinate 100 mg 03/31/21 14:09 03/31/21 14:23 Hydrocortisone Sodium Succinate 100 Mg/2 Ml Sdv IVPUSH 03/31/21 14:10 100 mg ONETIME ONE Administration Levothyroxine Sodium 100 mcg/ 5 mls @ 300 mls/hr 03/31/21 14:45 03/31/21 14:38 Sodium Chloride IV 03/31/21 14:46 300 mls/hr ONETIME ONE Administration Lorazepam 0 mg 03/31/21 18:46 03/31/21 19:16 Lorazepam 2 Mg/Ml Sdv IVPUSH 03/31/21 18:47 Not Given ONETIME ONE Protocol Departure - Departure Time of Disposition: 15:45 Disposition: Admitted As Inpatient 67 Condition: Serious Clinical Impression: Hypothermia, Hypothyroid, Acute kidney injury - Discharge Information Sepsis Event Note (ED) - Evaluation Sepsis Screening Result: No Definite Risk - Focused Exam Vital Signs: Vital Signs Temp Pulse Resp BP Pulse Ox 03/31/21 14:44 55 L 20 113/61 100 03/31/21 14:06 56 L 107/59 L 100 03/31/21 13:05 34.9 C L 59 L 15 93/52 L 99 - My Orders Last 24 Hours: My Active Orders 03/31/21 12:50 EKG Documentation Completion [RC] STAT 03/31/21 14:30 Dextrose 5%-Lactated Ringers 1,000 ml IV ASDIRECTED - Assessment/Plan Last 24 Hours: My Active Orders 03/31/21 12:50 EKG Documentation Completion [RC] STAT 03/31/21 14:30 Dextrose 5%-Lactated Ringers 1,000 ml IV ASDIRECTED
[2021-03-31 20:08] LABS: HEMOGLOBIN A1C 8.6 %
[2021-04-01] MEDS: Dextrose 5%-Lactated Ringers 1,000 ML IV SCH (01:39)
[2021-04-01 06:17] LABS: CARBON DIOXIDE,CO2 17.5 mmol/L (21.0-32.0); POTASSIUM,K 4.9 mmol/L (3.5-5.1)
[2021-04-01] MEDS ORDERED: 50% Dextrose in Water 50 ML Syringe IV PRN (07:42)
[2021-04-01] MEDS ORDERED: Glucagon,Human Recombinant 1 MG Vial IM PRN (07:42)
[2021-04-01] MEDS ORDERED: Levothyroxine 100 MCG Vial IVPUSH SCH (09:00)
[2021-04-01] MEDS: Multivitamin Tab PO SCH (09:18)
[2021-04-01] MEDS: Nicotine 7 MG/24 Hr Patch TRDERM SCH (09:18)
[2021-04-01] MEDS: buPROPion 150 MG Tab.SR PO SCH (09:18)
[2021-04-01] MEDS ORDERED: Insulin Aspart 100 Units/ML 3 ML Pen ONE (09:21)
[2021-04-01] MEDS: Insulin Aspart 100 Units/ML 3 ML Pen SUBCUT SCH ×3 (09:36→18:43)
[2021-04-01] MEDS: Levothyroxine 50 MCG in Sodium Chloride 0.9% 2.5 ML IV SCH (10:24)
[2021-04-01] MEDS ORDERED: Hydrocortisone Sodium Succinate 250 MG/2 ML SDV IV SCH (11:45)
[2021-04-01] MEDS: Hydrocortisone Sodium Succinate 100 MG/2 ML SDV IV SCH (12:06)
[2021-04-01] MEDS: DEXTROSE 50% IV SCH ×4 (12:07→22:57)
[2021-04-01] MEDS: LACTATED RINGERS IV SCH ×4 (12:07→22:57)
[2021-04-01] MEDS: WATER IV SCH ×4 (12:07→22:57)
--- NOTE | 2021-04-01 12:09 | PCM.PN ---
- General Info Date of Service: 04/01/21 Subjective Update: Bedside: pt feeling lethargic and appetite has not improved. Mentions pain in legs but endorses this is not new Daughter/family at bedside: mentions pt does seem more lethargic than his baseline - Review of Systems General: Reports: Weakness, Fatigue. Denies: Fever, Chills HEENT: Reports: No Symptoms Pulmonary: Reports: No Symptoms Cardiovascular: Reports: No Symptoms Gastrointestinal: Reports: Decreased Appetite. Denies: Nausea, Vomiting Musculoskeletal: Reports: Back Pain, Leg Pain, Foot Pain Skin: Reports: Dryness Neurological: Reports: No Symptoms - Patient Data Vitals - Most Recent: Last Vital Signs Temp 97.3 F 04/01/21 11:52 Pulse 71 04/01/21 11:52 Resp 16 04/01/21 11:52 BP 115/68 04/01/21 11:52 Pulse Ox 97 04/01/21 11:52 Weight - Most Recent: 34.473 kg I&O - Last 24 Hours: Intake & Output 03/31/21 04/01/21 04/01/21 22:59 06:59 14:59 Intake Total 1450 Output Total 0 Balance 1450 Lab Results Last 24 Hours: Laboratory Results - last 24 hr 03/31/21 03/31/21 03/31/21 Range/Units 13:13 13:13 13:13 WBC 5.67 (4.0-11.0) K/uL RBC 3.15 L (4.50-5.90) M/uL Hgb 9.6 L (13.0-17.0) g/dL Hct 27.9 L (38.0-50.0) % MCV 88.6 (80.0-98.0) fL MCH 30.5 (27.0-32.0) pg MCHC 34.4 (31.0-37.0) g/dL RDW Std Deviation 49.7 (28.0-62.0) fl RDW Coeff of [place] 16 H (11.0-15.0) % Plt Count 199 (150-400) K/uL MPV 9.60 (7.40-12.00) fL Neut % (Auto) 64.8 (48.0-80.0) % Lymph % (Auto) 23.5 (16.0-40.0) % [place] % (Auto) 8.5 (0.0-15.0) % Eos % (Auto) 3.0 (0.0-7.0) % Baso % (Auto) 0.2 (0.0-1.5) % Neut # (Auto) 3.7 (1.4-5.7) K/uL Lymph # (Auto) 1.3 (0.6-2.4) K/uL [place] # (Auto) 0.5 (0.0-0.8) K/uL Eos # (Auto) 0.2 (0.0-0.7) K/uL Baso # (Auto) 0.0 (0.0-0.1) K/uL Nucleated RBC % 0.0 /100WBC Nucleated RBCs # 0 K/uL INR 1.12 ABG pH (7.35-7.45) ABG pCO2 (35-45) mmHG ABG pO2 (80-105) mmHG ABG HCO3 (22-26) mEq/L ABG Total CO2 (23-27) mmol/L ABG Base Excess (-2.0-3.0) Sodium 131 L (136-148) mmol/L Potassium 5.0 (3.5-5.1) mmol/L Chloride 102 (98-107) mmol/L Carbon Dioxide 16.6 L (21.0-32.0) mmol/L BUN 45 H (7.0-18.0) mg/dL Creatinine 1.9 H (0.8-1.3) mg/dL Est Cr Clr Drug Dosing TNP Estimated GFR (MDRD) 34.8 ml/min Glucose 181 H (74-106) mg/dL POC Glucose (70-99) mg/dL Hemoglobin A1c (4.5 - 6.2) % Calcium 8.0 L (8.5-10.1) mg/dL Total Bilirubin 0.2 (0.2-1.0) mg/dL AST 94 H (15-37) IU/L ALT 34 (14-63) IU/L Alkaline Phosphatase 110 (46-116) U/L Creatine Kinase 355 H (26-308) U/L Troponin I < 0.050 (0.000-0.056) ng/mL Total Protein 6.1 L (6.4-8.2) g/dL Albumin 2.6 L (3.4-5.0) g/dL Globulin 3.5 (2.6-4.0) g/dL Albumin/Globulin Ratio 0.7 L (0.9-1.6) Free T4 0.75 L (0.76-1.46) ng/dL TSH 3rd Generation 29.89 H (0.36-3.74) uIU/mL Urine Color Urine Appearance Urine pH (5.0-8.0) Ur Specific [place] (1.001-1.035) Urine Protein (NEGATIVE) mg/dL Urine Glucose (UA) (NEGATIVE) mg/dL Urine Ketones (NEGATIVE) mg/dL Urine Occult Blood (NEGATIVE) Urine Nitrite (NEGATIVE) Urine Bilirubin (NEGATIVE) Urine Urobilinogen (<2.0) EU/dL Ur Leukocyte Esterase (NEGATIVE) SARS-CoV-2 RNA (DOMINGA) (NEGATIVE) 03/31/21 03/31/21 03/31/21 Range/Units 13:13 13:38 14:49 WBC (4.0-11.0) K/uL RBC (4.50-5.90) M/uL Hgb (13.0-17.0) g/dL Hct (38.0-50.0) % MCV (80.0-98.0) fL MCH (27.0-32.0) pg MCHC (31.0-37.0) g/dL RDW Std Deviation (28.0-62.0) fl RDW Coeff of [place] (11.0-15.0) % Plt Count (150-400) K/uL MPV (7.40-12.00) fL Neut % (Auto) (48.0-80.0) % Lymph % (Auto) (16.0-40.0) % [place] % (Auto) (0.0-15.0) % Eos % (Auto) (0.0-7.0) % Baso % (Auto) (0.0-1.5) % Neut # (Auto) (1.4-5.7) K/uL Lymph # (Auto) (0.6-2.4) K/uL [place] # (Auto) (0.0-0.8) K/uL Eos # (Auto) (0.0-0.7) K/uL Baso # (Auto) (0.0-0.1) K/uL Nucleated RBC % /100WBC Nucleated RBCs # K/uL INR ABG pH 7.22 L (7.35-7.45) ABG pCO2 38 (35-45) mmHG ABG pO2 32 L* (80-105) mmHG ABG HCO3 15 L (22-26) mEq/L ABG Total CO2 15.1 L (23-27) mmol/L ABG Base Excess -11.6 L (-2.0-3.0) Sodium (136-148) mmol/L Potassium (3.5-5.1) mmol/L Chloride (98-107) mmol/L Carbon Dioxide (21.0-32.0) mmol/L BUN (7.0-18.0) mg/dL Creatinine (0.8-1.3) mg/dL Est Cr Clr Drug Dosing Estimated GFR (MDRD) ml/min Glucose (74-106) mg/dL POC Glucose (70-99) mg/dL Hemoglobin A1c 8.6 H (4.5 - 6.2) % Calcium (8.5-10.1) mg/dL Total Bilirubin (0.2-1.0) mg/dL AST (15-37) IU/L ALT (14-63) IU/L Alkaline Phosphatase (46-116) U/L Creatine Kinase (26-308) U/L Troponin I (0.000-0.056) ng/mL Total Protein (6.4-8.2) g/dL Albumin (3.4-5.0) g/dL Globulin (2.6-4.0) g/dL Albumin/Globulin Ratio (0.9-1.6) Free T4 (0.76-1.46) ng/dL TSH 3rd Generation (0.36-3.74) uIU/mL Urine Color Urine Appearance Urine pH (5.0-8.0) Ur Specific [place] (1.001-1.035) Urine Protein (NEGATIVE) mg/dL Urine Glucose (UA) (NEGATIVE) mg/dL Urine Ketones (NEGATIVE) mg/dL Urine Occult Blood (NEGATIVE) Urine Nitrite (NEGATIVE) Urine Bilirubin (NEGATIVE) Urine Urobilinogen (<2.0) EU/dL Ur Leukocyte Esterase (NEGATIVE) SARS-CoV-2 RNA (DOMINGA) NEGATIVE (NEGATIVE) 03/31/21 04/01/21 04/01/21 Range/Units 15:10 05:22 05:22 WBC 5.88 (4.0-11.0) K/uL RBC 2.87 L (4.50-5.90) M/uL Hgb 8.8 L (13.0-17.0) g/dL Hct 25.0 L (38.0-50.0) % MCV 87.1 (80.0-98.0) fL MCH 30.7 (27.0-32.0) pg MCHC 35.2 (31.0-37.0) g/dL RDW Std Deviation 47.9 (28.0-62.0) fl RDW Coeff of [place] 15 (11.0-15.0) % Plt Count 195 (150-400) K/uL MPV 9.70 (7.40-12.00) fL Neut % (Auto) 86.0 H (48.0-80.0) % Lymph % (Auto) 11.6 L (16.0-40.0) % [place] % (Auto) 2.4 (0.0-15.0) % Eos % (Auto) 0.0 (0.0-7.0) % Baso % (Auto) 0.0 (0.0-1.5) % Neut # (Auto) 5.1 (1.4-5.7) K/uL Lymph # (Auto) 0.7 (0.6-2.4) K/uL [place] # (Auto) 0.1 (0.0-0.8) K/uL Eos # (Auto) 0.0 (0.0-0.7) K/uL Baso # (Auto) 0.0 (0.0-0.1) K/uL Nucleated RBC % 0.0 /100WBC Nucleated RBCs # 0 K/uL INR ABG pH (7.35-7.45) ABG pCO2 (35-45) mmHG ABG pO2 (80-105) mmHG ABG HCO3 (22-26) mEq/L ABG Total CO2 (23-27) mmol/L ABG Base Excess (-2.0-3.0) Sodium 130 L (136-148) mmol/L Potassium 4.9 (3.5-5.1) mmol/L Chloride 101 (98-107) mmol/L Carbon Dioxide 17.5 L (21.0-32.0) mmol/L BUN 43 H (7.0-18.0) mg/dL Creatinine 1.8 H (0.8-1.3) mg/dL Est Cr Clr Drug Dosing 17.56 Estimated GFR (MDRD) 37.1 ml/min Glucose 410 H (74-106) mg/dL POC Glucose (70-99) mg/dL Hemoglobin A1c (4.5 - 6.2) % Calcium 7.7 L (8.5-10.1) mg/dL Total Bilirubin 0.2 (0.2-1.0) mg/dL AST 77 H (15-37) IU/L ALT 33 (14-63) IU/L Alkaline Phosphatase 98 (46-116) U/L Creatine Kinase (26-308) U/L Troponin I (0.000-0.056) ng/mL Total Protein 5.6 L (6.4-8.2) g/dL Albumin 2.4 L (3.4-5.0) g/dL Globulin 3.2 (2.6-4.0) g/dL Albumin/Globulin Ratio 0.8 L (0.9-1.6) Free T4 (0.76-1.46) ng/dL TSH 3rd Generation 18.55 H (0.36-3.74) uIU/mL Urine Color YELLOW Urine Appearance CLEAR Urine pH 5.5 (5.0-8.0) Ur Specific [place] 1.025 (1.001-1.035) Urine Protein NEGATIVE (NEGATIVE) mg/dL Urine Glucose (UA) NEGATIVE (NEGATIVE) mg/dL Urine Ketones NEGATIVE (NEGATIVE) mg/dL Urine Occult Blood NEGATIVE (NEGATIVE) Urine Nitrite NEGATIVE (NEGATIVE) Urine Bilirubin NEGATIVE (NEGATIVE) Urine Urobilinogen 0.2 (<2.0) EU/dL Ur Leukocyte Esterase NEGATIVE (NEGATIVE) SARS-CoV-2 RNA ([place]) (NEGATIVE) 04/01/21 04/01/21 04/01/21 Range/Units 07:00 09:13 10:30 WBC (4.0-11.0) K/uL RBC (4.50-5.90) M/uL Hgb (13.0-17.0) g/dL Hct (38.0-50.0) % MCV (80.0-98.0) fL MCH (27.0-32.0) pg MCHC (31.0-37.0) g/dL RDW Std Deviation (28.0-62.0) fl RDW Coeff of [place] (11.0-15.0) % Plt Count (150-400) K/uL MPV (7.40-12.00) fL Neut % (Auto) (48.0-80.0) % Lymph % (Auto) (16.0-40.0) % [place] % (Auto) (0.0-15.0) % Eos % (Auto) (0.0-7.0) % Baso % (Auto) (0.0-1.5) % Neut # (Auto) (1.4-5.7) K/uL Lymph # (Auto) (0.6-2.4) K/uL [place] # (Auto) (0.0-0.8) K/uL Eos # (Auto) (0.0-0.7) K/uL Baso # (Auto) (0.0-0.1) K/uL Nucleated RBC % /100WBC Nucleated RBCs # K/uL INR ABG pH (7.35-7.45) ABG pCO2 (35-45) mmHG ABG pO2 (80-105) mmHG ABG HCO3 (22-26) mEq/L ABG Total CO2 (23-27) mmol/L ABG Base Excess (-2.0-3.0) Sodium (136-148) mmol/L Potassium (3.5-5.1) mmol/L Chloride (98-107) mmol/L Carbon Dioxide (21.0-32.0) mmol/L BUN (7.0-18.0) mg/dL Creatinine (0.8-1.3) mg/dL Est Cr Clr Drug Dosing Estimated GFR (MDRD) ml/min Glucose (74-106) mg/dL POC Glucose 362 H 362 H 305 H (70-99) mg/dL Hemoglobin A1c (4.5 - 6.2) % Calcium (8.5-10.1) mg/dL Total Bilirubin (0.2-1.0) mg/dL AST (15-37) IU/L ALT (14-63) IU/L Alkaline Phosphatase (46-116) U/L Creatine Kinase (26-308) U/L Troponin I (0.000-0.056) ng/mL Total Protein (6.4-8.2) g/dL Albumin (3.4-5.0) g/dL Globulin (2.6-4.0) g/dL Albumin/Globulin Ratio (0.9-1.6) Free T4 (0.76-1.46) ng/dL TSH 3rd Generation (0.36-3.74) uIU/mL Urine Color Urine Appearance Urine pH (5.0-8.0) Ur Specific [place] (1.001-1.035) Urine Protein (NEGATIVE) mg/dL Urine Glucose (UA) (NEGATIVE) mg/dL Urine Ketones (NEGATIVE) mg/dL Urine Occult Blood (NEGATIVE) Urine Nitrite (NEGATIVE) Urine Bilirubin (NEGATIVE) Urine Urobilinogen (<2.0) EU/dL Ur Leukocyte Esterase (NEGATIVE) SARS-CoV-2 RNA ([place]) (NEGATIVE) Med Orders - Current: Current Medications Acetaminophen (Acetaminophen 325 Mg Tab) 650 mg PO Q4H PRN PRN Reason: Pain (Mild 1-3)/fever Last Admin: 03/31/21 23:59 Dose: 650 mg Documented by: Bupropion HCl (Bupropion 150 Mg Tab.Sr) 150 mg PO DAILY [facility] Last Admin: 04/01/21 09:18 Dose: 150 mg Documented by: Dextrose/Water (50% Dextrose In Water 50 Ml Syringe) 50 ml IV ASDIRECTED PRN PRN Reason: Hypoglycemia Glucagon (Glucagon,Human Recombinant 1 Mg Vial) 1 mg IM ASDIRECTED PRN PRN Reason: Hypoglycemia Hydrocortisone Sodium Succinate (Hydrocortisone Sodium Succinate 100 Mg/2 Ml Sdv) 100 mg IV DAILY [facility] Dextrose/Lactated Ringer's (Dextrose 5%-Lactated Ringers) 1,000 mls @ 100 mls/hr IV ASDIRECTED ARELIS Last Admin: 04/01/21 01:39 Dose: 100 mls/hr Documented by: Levothyroxine Sodium 50 mcg/ (Sodium Chloride) 2.5 mls @ 300 mls/hr IV DAILY [facility] Last Admin: 04/01/21 10:24 Dose: 300 mls/hr Documented by: Dextrose/Water 50 ml/ Lactated (Ringer's) 1,050 mls @ 100 mls/hr IV Q10H [facility] Insulin Aspart (Insulin Aspart 100 Units/Ml 3 Ml Pen) 0 unit SUBCUT TIDAC [facility]; Protocol Last Admin: 04/01/21 09:36 Dose: 5 units Documented by: Lorazepam (Lorazepam 2 Mg/Ml Sdv) 0 mg IVPUSH Q4H PRN; Protocol PRN Reason: Withdrawal Symptoms Multivitamins/Minerals/Vitamin C (Multivitamin Tab) 1 tab PO DAILY [facility] Last Admin: 04/01/21 09:18 Dose: 1 tab Documented by: Nicotine (Nicotine 7 Mg/24 Hr Patch) 7 mg TRDERM DAILY [facility] Last Admin: 04/01/21 09:18 Dose: 7 mg Documented by: Ondansetron HCl (Ondansetron 4 Mg Tab.Dis) 4 mg PO Q4H PRN PRN Reason: nausea, able to take PO Discontinued Medications Hydrocortisone Sodium Succinate (Hydrocortisone Sodium Succinate 100 Mg/2 Ml Sdv) 100 mg IVPUSH ONETIME ONE Stop: 03/31/21 14:10 Last Admin: 03/31/21 14:23 Dose: 100 mg Documented by: Levothyroxine Sodium 100 mcg/ (Sodium Chloride) 5 mls @ 300 mls/hr IV ONETIME ONE Stop: 03/31/21 14:46 Last Admin: 03/31/21 14:38 Dose: 300 mls/hr Documented by: Insulin Aspart (Insulin Aspart 100 Units/Ml 3 Ml Pen) Confirm Administered Dose 300 unit .ROUTE .STK-MED ONE Stop: 04/01/21 09:22 Last Admin: 04/01/21 09:49 Dose: 5 units Documented by: Lorazepam (Lorazepam 2 Mg/Ml Sdv) 0 mg IVPUSH ONETIME ONE; Protocol Stop: 03/31/21 18:47 Last Admin: 03/31/21 19:16 Dose: Not Given Documented by: - Exam Quality Assessment: Skin Breakdown. No: Supplemental Oxygen General: Alert, Oriented HEENT: EOMI, Other (mildly sluggish pupillary reflex ) Lungs: Clear to Auscultation, Normal Respiratory Effort Cardiovascular: Regular Rate, Regular Rhythm GI/Abdominal Exam: Soft Extremities: Other (significant low muscle mass: dryt ulcers noted over sacrum and feet unchanged from admission ) Skin: Dry Psy/Mental Status: Alert, Other (sluggish demeanor ; can answere questions but slow ) - Patient Data Lab Results Last 24 hrs: Laboratory Results - last 24 hr 03/31/21 03/31/21 03/31/21 Range/Units 13:13 13:13 13:13 WBC 5.67 (4.0-11.0) K/uL RBC 3.15 L (4.50-5.90) M/uL Hgb 9.6 L (13.0-17.0) g/dL Hct 27.9 L (38.0-50.0) % MCV 88.6 (80.0-98.0) fL MCH 30.5 (27.0-32.0) pg MCHC 34.4 (31.0-37.0) g/dL RDW Std Deviation 49.7 (28.0-62.0) fl RDW Coeff of [place] 16 H (11.0-15.0) % Plt Count 199 (150-400) K/uL MPV 9.60 (7.40-12.00) fL Neut % (Auto) 64.8 (48.0-80.0) % Lymph % (Auto) 23.5 (16.0-40.0) % [place] % (Auto) 8.5 (0.0-15.0) % Eos % (Auto) 3.0 (0.0-7.0) % Baso % (Auto) 0.2 (0.0-1.5) % Neut # (Auto) 3.7 (1.4-5.7) K/uL Lymph # (Auto) 1.3 (0.6-2.4) K/uL [place] # (Auto) 0.5 (0.0-0.8) K/uL Eos # (Auto) 0.2 (0.0-0.7) K/uL Baso # (Auto) 0.0 (0.0-0.1) K/uL Nucleated RBC % 0.0 /100WBC Nucleated RBCs # 0 K/uL INR 1.12 ABG pH (7.35-7.45) ABG pCO2 (35-45) mmHG ABG pO2 (80-105) mmHG ABG HCO3 (22-26) mEq/L ABG Total CO2 (23-27) mmol/L ABG Base Excess (-2.0-3.0) Sodium 131 L (136-148) mmol/L Potassium 5.0 (3.5-5.1) mmol/L Chloride 102 (98-107) mmol/L Carbon Dioxide 16.6 L (21.0-32.0) mmol/L BUN 45 H (7.0-18.0) mg/dL Creatinine 1.9 H (0.8-1.3) mg/dL Est Cr Clr Drug Dosing TNP Estimated GFR (MDRD) 34.8 ml/min Glucose 181 H (74-106) mg/dL POC Glucose (70-99) mg/dL Hemoglobin A1c (4.5 - 6.2) % Calcium 8.0 L (8.5-10.1) mg/dL Total Bilirubin 0.2 (0.2-1.0) mg/dL AST 94 H (15-37) IU/L ALT 34 (14-63) IU/L Alkaline Phosphatase 110 (46-116) U/L Creatine Kinase 355 H (26-308) U/L Troponin I < 0.050 (0.000-0.056) ng/mL Total Protein 6.1 L (6.4-8.2) g/dL Albumin 2.6 L (3.4-5.0) g/dL Globulin 3.5 (2.6-4.0) g/dL Albumin/Globulin Ratio 0.7 L (0.9-1.6) Free T4 0.75 L (0.76-1.46) ng/dL TSH 3rd Generation 29.89 H (0.36-3.74) uIU/mL Urine Color Urine Appearance Urine pH (5.0-8.0) Ur Specific [place] (1.001-1.035) Urine Protein (NEGATIVE) mg/dL Urine Glucose (UA) (NEGATIVE) mg/dL Urine Ketones (NEGATIVE) mg/dL Urine Occult Blood (NEGATIVE) Urine Nitrite (NEGATIVE) Urine Bilirubin (NEGATIVE) Urine Urobilinogen (<2.0) EU/dL Ur Leukocyte Esterase (NEGATIVE) SARS-CoV-2 RNA ([place]) (NEGATIVE) 03/31/21 03/31/21 03/31/21 Range/Units 13:13 13:38 14:49 WBC (4.0-11.0) K/uL RBC (4.50-5.90) M/uL Hgb (13.0-17.0) g/dL Hct (38.0-50.0) % MCV (80.0-98.0) fL MCH (27.0-32.0) pg MCHC (31.0-37.0) g/dL RDW Std Deviation (28.0-62.0) fl RDW Coeff of [place] (11.0-15.0) % Plt Count (150-400) K/uL MPV (7.40-12.00) fL Neut % (Auto) (48.0-80.0) % Lymph % (Auto) (16.0-40.0) % [place] % (Auto) (0.0-15.0) % Eos % (Auto) (0.0-7.0) % Baso % (Auto) (0.0-1.5) % Neut # (Auto) (1.4-5.7) K/uL Lymph # (Auto) (0.6-2.4) K/uL [place] # (Auto) (0.0-0.8) K/uL Eos # (Auto) (0.0-0.7) K/uL Baso # (Auto) (0.0-0.1) K/uL Nucleated RBC % /100WBC Nucleated RBCs # K/uL INR ABG pH 7.22 L (7.35-7.45) ABG pCO2 38 (35-45) mmHG ABG pO2 32 L* (80-105) mmHG ABG HCO3 15 L (22-26) mEq/L ABG Total CO2 15.1 L (23-27) mmol/L ABG Base Excess -11.6 L (-2.0-3.0) Sodium (136-148) mmol/L Potassium (3.5-5.1) mmol/L Chloride (98-107) mmol/L Carbon Dioxide (21.0-32.0) mmol/L BUN (7.0-18.0) mg/dL Creatinine (0.8-1.3) mg/dL Est Cr Clr Drug Dosing Estimated GFR (MDRD) ml/min Glucose (74-106) mg/dL POC Glucose (70-99) mg/dL Hemoglobin A1c 8.6 H (4.5 - 6.2) % Calcium (8.5-10.1) mg/dL Total Bilirubin (0.2-1.0) mg/dL AST (15-37) IU/L ALT (14-63) IU/L Alkaline Phosphatase (46-116) U/L Creatine Kinase (26-308) U/L Troponin I (0.000-0.056) ng/mL Total Protein (6.4-8.2) g/dL Albumin (3.4-5.0) g/dL Globulin (2.6-4.0) g/dL Albumin/Globulin Ratio (0.9-1.6) Free T4 (0.76-1.46) ng/dL TSH 3rd Generation (0.36-3.74) uIU/mL Urine Color Urine Appearance Urine pH (5.0-8.0) Ur Specific [place] (1.001-1.035) Urine Protein (NEGATIVE) mg/dL Urine Glucose (UA) (NEGATIVE) mg/dL Urine Ketones (NEGATIVE) mg/dL Urine Occult Blood (NEGATIVE) Urine Nitrite (NEGATIVE) Urine Bilirubin (NEGATIVE) Urine Urobilinogen (<2.0) EU/dL Ur Leukocyte Esterase (NEGATIVE) SARS-CoV-2 RNA ([place]) NEGATIVE (NEGATIVE) 03/31/21 04/01/21 04/01/21 Range/Units 15:10 05:22 05:22 WBC 5.88 (4.0-11.0) K/uL RBC 2.87 L (4.50-5.90) M/uL Hgb 8.8 L (13.0-17.0) g/dL Hct 25.0 L (38.0-50.0) % MCV 87.1 (80.0-98.0) fL MCH 30.7 (27.0-32.0) pg MCHC 35.2 (31.0-37.0) g/dL RDW Std Deviation 47.9 (28.0-62.0) fl RDW Coeff of [place] 15 (11.0-15.0) % Plt Count 195 (150-400) K/uL MPV 9.70 (7.40-12.00) fL Neut % (Auto) 86.0 H (48.0-80.0) % Lymph % (Auto) 11.6 L (16.0-40.0) % [place] % (Auto) 2.4 (0.0-15.0) % Eos % (Auto) 0.0 (0.0-7.0) % Baso % (Auto) 0.0 (0.0-1.5) % Neut # (Auto) 5.1 (1.4-5.7) K/uL Lymph # (Auto) 0.7 (0.6-2.4) K/uL [place] # (Auto) 0.1 (0.0-0.8) K/uL Eos # (Auto) 0.0 (0.0-0.7) K/uL Baso # (Auto) 0.0 (0.0-0.1) K/uL Nucleated RBC % 0.0 /100WBC Nucleated RBCs # 0 K/uL INR ABG pH (7.35-7.45) ABG pCO2 (35-45) mmHG ABG pO2 (80-105) mmHG ABG HCO3 (22-26) mEq/L ABG Total CO2 (23-27) mmol/L ABG Base Excess (-2.0-3.0) Sodium 130 L (136-148) mmol/L Potassium 4.9 (3.5-5.1) mmol/L Chloride 101 (98-107) mmol/L Carbon Dioxide 17.5 L (21.0-32.0) mmol/L BUN 43 H (7.0-18.0) mg/dL Creatinine 1.8 H (0.8-1.3) mg/dL Est Cr Clr Drug Dosing 17.56 Estimated GFR (MDRD) 37.1 ml/min Glucose 410 H (74-106) mg/dL POC Glucose (70-99) mg/dL Hemoglobin A1c (4.5 - 6.2) % Calcium 7.7 L (8.5-10.1) mg/dL Total Bilirubin 0.2 (0.2-1.0) mg/dL AST 77 H (15-37) IU/L ALT 33 (14-63) IU/L Alkaline Phosphatase 98 (46-116) U/L Creatine Kinase (26-308) U/L Troponin I (0.000-0.056) ng/mL Total Protein 5.6 L (6.4-8.2) g/dL Albumin 2.4 L (3.4-5.0) g/dL Globulin 3.2 (2.6-4.0) g/dL Albumin/Globulin Ratio 0.8 L (0.9-1.6) Free T4 (0.76-1.46) ng/dL TSH 3rd Generation 18.55 H (0.36-3.74) uIU/mL Urine Color YELLOW Urine Appearance CLEAR Urine pH 5.5 (5.0-8.0) Ur Specific [place] 1.025 (1.001-1.035) Urine Protein NEGATIVE (NEGATIVE) mg/dL Urine Glucose (UA) NEGATIVE (NEGATIVE) mg/dL Urine Ketones NEGATIVE (NEGATIVE) mg/dL Urine Occult Blood NEGATIVE (NEGATIVE) Urine Nitrite NEGATIVE (NEGATIVE) Urine Bilirubin NEGATIVE (NEGATIVE) Urine Urobilinogen 0.2 (<2.0) EU/dL Ur Leukocyte Esterase NEGATIVE (NEGATIVE) SARS-CoV-2 RNA (DOMINGA) (NEGATIVE) 04/01/21 04/01/21 04/01/21 Range/Units 07:00 09:13 10:30 WBC (4.0-11.0) K/uL RBC (4.50-5.90) M/uL Hgb (13.0-17.0) g/dL Hct (38.0-50.0) % MCV (80.0-98.0) fL MCH (27.0-32.0) pg MCHC (31.0-37.0) g/dL RDW Std Deviation (28.0-62.0) fl RDW Coeff of [place] (11.0-15.0) % Plt Count (150-400) K/uL MPV (7.40-12.00) fL Neut % (Auto) (48.0-80.0) % Lymph % (Auto) (16.0-40.0) % [place] % (Auto) (0.0-15.0) % Eos % (Auto) (0.0-7.0) % Baso % (Auto) (0.0-1.5) % Neut # (Auto) (1.4-5.7) K/uL Lymph # (Auto) (0.6-2.4) K/uL [place] # (Auto) (0.0-0.8) K/uL Eos # (Auto) (0.0-0.7) K/uL Baso # (Auto) (0.0-0.1) K/uL Nucleated RBC % /100WBC Nucleated RBCs # K/uL INR ABG pH (7.35-7.45) ABG pCO2 (35-45) mmHG ABG pO2 (80-105) mmHG ABG HCO3 (22-26) mEq/L ABG Total CO2 (23-27) mmol/L ABG Base Excess (-2.0-3.0) Sodium (136-148) mmol/L Potassium (3.5-5.1) mmol/L Chloride (98-107) mmol/L Carbon Dioxide (21.0-32.0) mmol/L BUN (7.0-18.0) mg/dL Creatinine (0.8-1.3) mg/dL Est Cr Clr Drug Dosing Estimated GFR (MDRD) ml/min Glucose (74-106) mg/dL POC Glucose 362 H 362 H 305 H (70-99) mg/dL Hemoglobin A1c (4.5 - 6.2) % Calcium (8.5-10.1) mg/dL Total Bilirubin (0.2-1.0) mg/dL AST (15-37) IU/L ALT (14-63) IU/L Alkaline Phosphatase (46-116) U/L Creatine Kinase (26-308) U/L Troponin I (0.000-0.056) ng/mL Total Protein (6.4-8.2) g/dL Albumin (3.4-5.0) g/dL Globulin (2.6-4.0) g/dL Albumin/Globulin Ratio (0.9-1.6) Free T4 (0.76-1.46) ng/dL TSH 3rd Generation (0.36-3.74) uIU/mL Urine Color Urine Appearance Urine pH (5.0-8.0) Ur Specific [place] (1.001-1.035) Urine Protein (NEGATIVE) mg/dL Urine Glucose (UA) (NEGATIVE) mg/dL Urine Ketones (NEGATIVE) mg/dL Urine Occult Blood (NEGATIVE) Urine Nitrite (NEGATIVE) Urine Bilirubin (NEGATIVE) Urine Urobilinogen (<2.0) EU/dL Ur Leukocyte Esterase (NEGATIVE) SARS-CoV-2 RNA (DOMINGA) (NEGATIVE) Result Diagrams: 04/01/21 05:22 04/01/21 05:22 Sepsis Event Note - Evaluation Sepsis Screening Result: No Definite Risk - Focused Exam Vital Signs: Vital Signs Temp Pulse Resp BP Pulse Ox 04/01/21 11:52 97.3 F 71 16 115/68 97 04/01/21 07:35 96.9 F 68 17 134/63 99 04/01/21 04:00 97 F 68 18 154/70 H 100 - Problem List & Annotations (1) Weakness SNOMED Code(s): 12159878 Code(s): R53.1 - WEAKNESS Status: Acute Current Visit: Yes (2) Severe calorie deficiency SNOMED Code(s): 305193266 Code(s): E43 - UNSPECIFIED SEVERE PROTEIN-CALORIE MALNUTRITION Status: Acute Current Visit: Yes (3) Severe hypothyroidism SNOMED Code(s): 72468884 Code(s): E03.8 - OTHER SPECIFIED HYPOTHYROIDISM Status: Acute Current Visit: Yes (4) Alcohol abuse SNOMED Code(s): 38780307 Code(s): F10.10 - ALCOHOL ABUSE, UNCOMPLICATED Status: Acute Current Visit: Yes (5) Diabetes mellitus SNOMED Code(s): 98613836 Code(s): E11.9 - TYPE 2 DIABETES MELLITUS WITHOUT COMPLICATIONS Status: Acute Current Visit: No - Problem List Review Problem List Initiated/Reviewed/Updated: Yes - My Orders Last 24 Hours: My Active Orders 03/31/21 Dinner Regular Diet [DIET] 03/31/21 17:18 Oxygen Therapy [RC] PRN Up With Assistance [RC] ASDIRECTED VTE/DVT Education [RC] PER UNIT ROUTINE Vital Signs [RC] Q4H 03/31/21 17:59 Blood Glucose Check, Bedside [RC] TIDMEALS Oxygen Therapy [RC] PRN VTE/DVT Education [RC] PER UNIT ROUTINE Vital Signs [RC] Q4H Acetaminophen [TylenoL] 650 mg PO Q4H PRN Ondansetron [Zofran ODT] 4 mg PO Q4H PRN Resuscitation Status Routine 03/31/21 18:00 Foot Pump [OM.PC] Per Unit Routine 03/31/21 18:32 Telemetry Monitoring [Cardiac Monitoring] [RC] Q8H 03/31/21 18:36 Consult to Wound Care Services [CONS] Routine 03/31/21 18:45 CIWAA Assessment [RC] Q4H 03/31/21 19:02 LORazepam [Ativan] See Protocol IVPUSH Q4H PRN 04/01/21 07:42 Dextrose 50% in Water 50 ml IV ASDIRECTED PRN Glucagon,Human Recombinant [GlucaGen] 1 mg IM ASDIRECTED PRN 04/01/21 09:00 Multivitamins [Tab-A-Nacho] 1 tab PO DAILY Nicotine [Habitrol] 7 mg TRDERM DAILY buPROPion [Wellbutrin SR] 150 mg PO DAILY 04/01/21 11:30 Insulin Aspart [NovoLOG] See Protocol SUBCUT TIDAC 04/01/21 12:00 Hydrocortisone Sod Succinate [Solu-CORTEF] 100 mg IV DAILY 04/01/21 13:00 Dextrose 50% in Water 50 ml Lactated Ringers [Ringers, Lactated] 1,000 ml IV Q10H 04/02/21 05:11 CBC WITH AUTO DIFF [HEME] AM TSH [CHEM] AM 04/03/21 05:11 CBC WITH AUTO DIFF [HEME] AM TSH [CHEM] AM - Plan Plan:: Assessment: 1. Significant hypothyroidism:improving 2. Normocytic anemia:stable 3. Mild hyponatremia 4. Acute kidney injury 5. Transaminitis AST >ALT 6. Elevated creatinine kinase 7. Severe calorie deficiency 8. Decubitus ulcer 9. Tobacco abuse 10. Daily alcohol use 11. Past medical history: Type 2 diabetes Plan 1. Symptomatic hypothyroidism: Ongoing and worsening most likely a chronic issue for quite some time. continue with 50 mcg IV levothyroxine daily and adjust accordingly; TSH improving (now 18) Initiate daily 50 mg Hydrocortisone ; Continue to monitor for response. Concerns about low appetite, calorie/protein deficiency could be related to significant hypothyroidism; will continue to monitor. 2. Mild hyponatremia: Dextrose-LR continuous for calorie support mild dehydration; SSI continue 3. Normocytic anemia: Currently stable; guaiac stool positive; however significant skin breakdown ulcerations in lower back and around rectum; 4. SHAHEEN: Continue IV fluids; recheck BMP in a.m. 5. Transaminitis: Alcohol use pattern; continue CIWA/Ativan protocol; continue IV fluids multivitamin and thiamine. 6. Significant caloric deficiency with low muscle mass: Ongoing chronic issue for many months; possibly as early as 2018; continue IV administration of thyroid medication, switch to full regular diet to encourage caloric intake; Continue to monitor electrolytes/cardiac function to avoid refeeding syndrome; telemetry ordered; BMP ordered in a.m. Encourage ensure shakes PT ordered for bedside strengthening 7. Multiple areas of skin breakdown: Lower back/sacrum/gluteal cleft: Skin breakdown from low muscle mass and decreased activity; no apparent signs of infection; will offload with padding and enterostomal care has been ordered. recommended Eucerin cream for feet; ordered Bilateral feet: Skin cracking with eschar noted over right foot and left plantar aspect; no overt signs of infection but tenderness is noted; may consider imaging however no overt signs of infection right now including no elevated white count. 8. Tobacco abuse: Half pack per day; 7 mcg nicotine patch ordered 9. Past medical history/type 2 diabetes: Hold all medications; monitor blood glucose
[2021-04-01] MEDS: Petrolatum,White Ointment 50 GM Tube TOP SCH (14:55)
[2021-04-01] MEDS: Acetaminophen 325 MG Tab PO PRN ×3 (15:07→22:36)
[2021-04-01] MEDS ORDERED: Lidocaine 5% 700 MG Patch TOP PRN (16:25)
[2021-04-02 06:46] LABS: CARBON DIOXIDE,CO2 16.9 mmol/L (21.0-32.0); POTASSIUM,K 3.8 mmol/L (3.5-5.1)
[2021-04-02] MEDS ORDERED: Thiamine 100 MG in Sodium Chloride 0.9% 100 ML IV ONE (09:00)
[2021-04-02] MEDS: Petrolatum,White Ointment 50 GM Tube TOP SCH (09:17)
[2021-04-02] MEDS: Multivitamin Tab PO SCH (09:18)
[2021-04-02] MEDS: Folic Acid 1 MG Tab PO SCH (09:18)
[2021-04-02] MEDS: Nicotine 7 MG/24 Hr Patch TRDERM SCH (09:19)
[2021-04-02] MEDS: buPROPion 150 MG Tab.SR PO SCH (09:19)
[2021-04-02] MEDS: Insulin Aspart 100 Units/ML 3 ML Pen SUBCUT SCH ×3 (09:21→18:05)
[2021-04-02] MEDS: Hydrocortisone Sodium Succinate 100 MG/2 ML SDV IV SCH (09:21)
--- NOTE | 2021-04-02 11:40 | PCM.PN ---
- General Info Date of Service: 04/02/21 Subjective Update: Bedside: more alert this AM w. family at bedside. Still lethargic and slow to respond at times however. - Review of Systems General: Reports: Weakness, Fatigue Pulmonary: Reports: No Symptoms Cardiovascular: Reports: No Symptoms Gastrointestinal: Denies: Nausea, Vomiting Genitourinary: Reports: Incontinence, Retention Musculoskeletal: Reports: Leg Pain, Foot Pain Skin: Reports: Dryness Neurological: Reports: Weakness - Patient Data Vitals - Most Recent: Last Vital Signs Temp 97.0 F 04/02/21 08:56 Pulse 72 04/02/21 08:56 Resp 18 04/02/21 08:56 BP 135/69 04/02/21 08:56 Pulse Ox 98 04/02/21 08:56 Weight - Most Recent: 34.473 kg I&O - Last 24 Hours: Intake & Output 04/01/21 04/02/21 04/02/21 22:59 06:59 14:59 Intake Total 360 600 Output Total 1600 600 Balance -1240 0 Lab Results Last 24 Hours: Laboratory Results - last 24 hr 04/01/21 04/01/21 04/02/21 Range/Units 12:23 17:26 05:20 WBC (4.0-11.0) K/uL RBC 2.47 L (4.50-5.90) M/uL Hgb (13.0-17.0) g/dL Hct (38.0-50.0) % MCV (80.0-98.0) fL MCH (27.0-32.0) pg MCHC (31.0-37.0) g/dL RDW Std Deviation (28.0-62.0) fl RDW Coeff of Ashley (11.0-15.0) % Plt Count (150-400) K/uL MPV (7.40-12.00) fL Neut % (Auto) (48.0-80.0) % Lymph % (Auto) (16.0-40.0) % [place] % (Auto) (0.0-15.0) % Eos % (Auto) (0.0-7.0) % Baso % (Auto) (0.0-1.5) % Neut # (Auto) (1.4-5.7) K/uL Lymph # (Auto) (0.6-2.4) K/uL [place] # (Auto) (0.0-0.8) K/uL Eos # (Auto) (0.0-0.7) K/uL Baso # (Auto) (0.0-0.1) K/uL Nucleated RBC % /100WBC Nucleated RBCs # K/uL Absolute Retic 27.40 (20-80) K/uL Percent Retic 1.1 (0.5-1.5) % Immature Retic Fraction 8 % Sodium (136-148) mmol/L Potassium (3.5-5.1) mmol/L Chloride (98-107) mmol/L Carbon Dioxide (21.0-32.0) mmol/L BUN (7.0-18.0) mg/dL Creatinine (0.8-1.3) mg/dL Est Cr Clr Drug Dosing mL/min Estimated GFR (MDRD) ml/min Glucose (74-106) mg/dL POC Glucose 195 H 163 H (70-99) mg/dL Calcium (8.5-10.1) mg/dL TSH 3rd Generation (0.36-3.74) uIU/mL 04/02/21 04/02/21 04/02/21 Range/Units 05:30 05:30 06:45 WBC 6.77 (4.0-11.0) K/uL RBC 2.53 L (4.50-5.90) M/uL Hgb 7.7 L (13.0-17.0) g/dL Hct 21.8 L (38.0-50.0) % MCV 86.2 (80.0-98.0) fL MCH 30.4 (27.0-32.0) pg MCHC 35.3 (31.0-37.0) g/dL RDW Std Deviation 47.7 (28.0-62.0) fl RDW Coeff of Ashley 15 (11.0-15.0) % Plt Count 186 (150-400) K/uL MPV 9.40 (7.40-12.00) fL Neut % (Auto) 73.9 (48.0-80.0) % Lymph % (Auto) 20.5 (16.0-40.0) % [place] % (Auto) 5.6 (0.0-15.0) % Eos % (Auto) 0.0 (0.0-7.0) % Baso % (Auto) 0.0 (0.0-1.5) % Neut # (Auto) 5.0 (1.4-5.7) K/uL Lymph # (Auto) 1.4 (0.6-2.4) K/uL [place] # (Auto) 0.4 (0.0-0.8) K/uL Eos # (Auto) 0.0 (0.0-0.7) K/uL Baso # (Auto) 0.0 (0.0-0.1) K/uL Nucleated RBC % 0.0 /100WBC Nucleated RBCs # 0 K/uL Absolute Retic (20-80) K/uL Percent Retic (0.5-1.5) % Immature Retic Fraction % Sodium 134 L (136-148) mmol/L Potassium 3.8 (3.5-5.1) mmol/L Chloride 105 (98-107) mmol/L Carbon Dioxide 16.9 L (21.0-32.0) mmol/L BUN 35 H (7.0-18.0) mg/dL Creatinine 1.4 H (0.8-1.3) mg/dL Est Cr Clr Drug Dosing 22.57 mL/min Estimated GFR (MDRD) 49.5 ml/min Glucose 223 H (74-106) mg/dL POC Glucose 183 H (70-99) mg/dL Calcium 7.5 L (8.5-10.1) mg/dL TSH 3rd Generation 14.64 H (0.36-3.74) uIU/mL Med Orders - Current: Current Medications Acetaminophen (Acetaminophen 325 Mg Tab) 650 mg PO Q4H PRN PRN Reason: Pain (Mild 1-3)/fever Last Admin: 04/01/21 22:36 Dose: 650 mg Documented by: Bupropion HCl (Bupropion 150 Mg Tab.Sr) 150 mg PO DAILY [facility] Last Admin: 04/02/21 09:19 Dose: 150 mg Documented by: Dextrose/Water (50% Dextrose In Water 50 Ml Syringe) 50 ml IV ASDIRECTED PRN PRN Reason: Hypoglycemia Folic Acid (Folic Acid 1 Mg Tab) 1 mg PO DAILY [facility] Last Admin: 04/02/21 09:18 Dose: 1 mg Documented by: Glucagon (Glucagon,Human Recombinant 1 Mg Vial) 1 mg IM ASDIRECTED PRN PRN Reason: Hypoglycemia Hydrocortisone Sodium Succinate (Hydrocortisone Sodium Succinate 100 Mg/2 Ml Sdv) 100 mg IV DAILY [facility] Last Admin: 04/02/21 09:21 Dose: 100 mg Documented by: Dextrose/Lactated Ringer's (Dextrose 5%-Lactated Ringers) 1,000 mls @ 100 mls/hr IV ASDIRECTED [facility] Last Admin: 04/01/21 01:39 Dose: 100 mls/hr Documented by: Levothyroxine Sodium 50 mcg/ (Sodium Chloride) 2.5 mls @ 300 mls/hr IV DAILY [facility] Last Admin: 04/01/21 10:24 Dose: 300 mls/hr Documented by: Dextrose/Water 50 ml/ Lactated (Ringer's) 1,050 mls @ 100 mls/hr IV Q10H [facility] Last Admin: 04/01/21 22:57 Dose: 100 mls/hr Documented by: Insulin Aspart (Insulin Aspart 100 Units/Ml 3 Ml Pen) 0 unit SUBCUT TIDAC [facility]; Protocol Last Admin: 04/02/21 09:21 Dose: 1 units Documented by: Lidocaine (Lidocaine 5% 700 Mg Patch) 700 mg TOP DAILY PRN PRN Reason: Pain Last Admin: 04/01/21 17:08 Dose: 700 mg Documented by: Lorazepam (Lorazepam 2 Mg/Ml Sdv) 0 mg IVPUSH Q4H PRN; Protocol PRN Reason: Withdrawal Symptoms Multivitamins/Minerals/Vitamin C (Multivitamin Tab) 1 tab PO DAILY [facility] Last Admin: 04/02/21 09:18 Dose: 1 tab Documented by: Nicotine (Nicotine 7 Mg/24 Hr Patch) 7 mg TRDERM DAILY [facility] Last Admin: 04/02/21 09:19 Dose: 7 mg Documented by: Ondansetron HCl (Ondansetron 4 Mg Tab.Dis) 4 mg PO Q4H PRN PRN Reason: nausea, able to take PO Petrolatum (Petrolatum,White Ointment 50 Gm Tube) 0 gm TOP DAILY [facility] Last Admin: 04/02/21 09:17 Dose: 1 applic Documented by: Discontinued Medications Hydrocortisone Sodium Succinate (Hydrocortisone Sodium Succinate 100 Mg/2 Ml Sdv) 100 mg IVPUSH ONETIME ONE Stop: 03/31/21 14:10 Last Admin: 03/31/21 14:23 Dose: 100 mg Documented by: Levothyroxine Sodium 100 mcg/ (Sodium Chloride) 5 mls @ 300 mls/hr IV ONETIME ONE Stop: 03/31/21 14:46 Last Admin: 03/31/21 14:38 Dose: 300 mls/hr Documented by: Thiamine HCl 100 mg/ Sodium (Chloride) 101 mls @ 202 mls/hr IV ONETIME ONE Stop: 04/02/21 09:29 Last Admin: 04/02/21 10:14 Dose: 202 mls/hr Documented by: Insulin Aspart (Insulin Aspart 100 Units/Ml 3 Ml Pen) Confirm Administered Dose 300 unit .ROUTE .STK-MED ONE Stop: 04/01/21 09:22 Last Admin: 04/01/21 09:49 Dose: 5 units Documented by: Lorazepam (Lorazepam 2 Mg/Ml Sdv) 0 mg IVPUSH ONETIME ONE; Protocol Stop: 03/31/21 18:47 Last Admin: 03/31/21 19:16 Dose: Not Given Documented by: - Exam Quality Assessment: No: Supplemental Oxygen General: Alert, Oriented HEENT: EOMI Neck: Supple Lungs: Clear to Auscultation, Normal Respiratory Effort Cardiovascular: Regular Rate GI/Abdominal Exam: Soft Neurological: No New Focal Deficit Psy/Mental Status: Alert - Patient Data Lab Results Last 24 hrs: Laboratory Results - last 24 hr 04/01/21 04/01/21 04/02/21 Range/Units 12:23 17:26 05:20 WBC (4.0-11.0) K/uL RBC 2.47 L (4.50-5.90) M/uL Hgb (13.0-17.0) g/dL Hct (38.0-50.0) % MCV (80.0-98.0) fL MCH (27.0-32.0) pg MCHC (31.0-37.0) g/dL RDW Std Deviation (28.0-62.0) fl RDW Coeff of Ashley (11.0-15.0) % Plt Count (150-400) K/uL MPV (7.40-12.00) fL Neut % (Auto) (48.0-80.0) % Lymph % (Auto) (16.0-40.0) % [place] % (Auto) (0.0-15.0) % Eos % (Auto) (0.0-7.0) % Baso % (Auto) (0.0-1.5) % Neut # (Auto) (1.4-5.7) K/uL Lymph # (Auto) (0.6-2.4) K/uL [place] # (Auto) (0.0-0.8) K/uL Eos # (Auto) (0.0-0.7) K/uL Baso # (Auto) (0.0-0.1) K/uL Nucleated RBC % /100WBC Nucleated RBCs # K/uL Absolute Retic 27.40 (20-80) K/uL Percent Retic 1.1 (0.5-1.5) % Immature Retic Fraction 8 % Sodium (136-148) mmol/L Potassium (3.5-5.1) mmol/L Chloride (98-107) mmol/L Carbon Dioxide (21.0-32.0) mmol/L BUN (7.0-18.0) mg/dL Creatinine (0.8-1.3) mg/dL Est Cr Clr Drug Dosing mL/min Estimated GFR (MDRD) ml/min Glucose (74-106) mg/dL POC Glucose 195 H 163 H (70-99) mg/dL Calcium (8.5-10.1) mg/dL TSH 3rd Generation (0.36-3.74) uIU/mL 04/02/21 04/02/21 04/02/21 Range/Units 05:30 05:30 06:45 WBC 6.77 (4.0-11.0) K/uL RBC 2.53 L (4.50-5.90) M/uL Hgb 7.7 L (13.0-17.0) g/dL Hct 21.8 L (38.0-50.0) % MCV 86.2 (80.0-98.0) fL MCH 30.4 (27.0-32.0) pg MCHC 35.3 (31.0-37.0) g/dL RDW Std Deviation 47.7 (28.0-62.0) fl RDW Coeff of Ashley 15 (11.0-15.0) % Plt Count 186 (150-400) K/uL MPV 9.40 (7.40-12.00) fL Neut % (Auto) 73.9 (48.0-80.0) % Lymph % (Auto) 20.5 (16.0-40.0) % [place] % (Auto) 5.6 (0.0-15.0) % Eos % (Auto) 0.0 (0.0-7.0) % Baso % (Auto) 0.0 (0.0-1.5) % Neut # (Auto) 5.0 (1.4-5.7) K/uL Lymph # (Auto) 1.4 (0.6-2.4) K/uL [place] # (Auto) 0.4 (0.0-0.8) K/uL Eos # (Auto) 0.0 (0.0-0.7) K/uL Baso # (Auto) 0.0 (0.0-0.1) K/uL Nucleated RBC % 0.0 /100WBC Nucleated RBCs # 0 K/uL Absolute Retic (20-80) K/uL Percent Retic (0.5-1.5) % Immature Retic Fraction % Sodium 134 L (136-148) mmol/L Potassium 3.8 (3.5-5.1) mmol/L Chloride 105 (98-107) mmol/L Carbon Dioxide 16.9 L (21.0-32.0) mmol/L BUN 35 H (7.0-18.0) mg/dL Creatinine 1.4 H (0.8-1.3) mg/dL Est Cr Clr Drug Dosing 22.57 mL/min Estimated GFR (MDRD) 49.5 ml/min Glucose 223 H (74-106) mg/dL POC Glucose 183 H (70-99) mg/dL Calcium 7.5 L (8.5-10.1) mg/dL TSH 3rd Generation 14.64 H (0.36-3.74) uIU/mL Result Diagrams: 04/02/21 05:30 04/02/21 05:30 Sepsis Event Note - Evaluation Sepsis Screening Result: No Definite Risk - Focused Exam Vital Signs: Vital Signs Temp Pulse Resp BP Pulse Ox 04/02/21 08:56 97.0 F 72 18 135/69 98 04/02/21 04:00 98 F 74 18 136/61 96 04/02/21 00:00 97.4 F 72 19 125/65 97 - Problem List & Annotations (1) Weakness SNOMED Code(s): 45168513 Code(s): R53.1 - WEAKNESS Status: Acute Current Visit: Yes (2) Severe calorie deficiency SNOMED Code(s): 618645141 Code(s): E43 - UNSPECIFIED SEVERE PROTEIN-CALORIE MALNUTRITION Status: Acute Current Visit: Yes (3) Severe hypothyroidism SNOMED Code(s): 92417518 Code(s): E03.8 - OTHER SPECIFIED HYPOTHYROIDISM Status: Acute Current Visit: Yes (4) Alcohol abuse SNOMED Code(s): 99465004 Code(s): F10.10 - ALCOHOL ABUSE, UNCOMPLICATED Status: Acute Current Visit: Yes (5) Diabetes mellitus SNOMED Code(s): 78369178 Code(s): E11.9 - TYPE 2 DIABETES MELLITUS WITHOUT COMPLICATIONS Status: Acute Current Visit: No - Problem List Review Problem List Initiated/Reviewed/Updated: Yes - My Orders Last 24 Hours: My Active Orders 04/01/21 11:30 Insulin Aspart [NovoLOG] See Protocol SUBCUT TIDAC 04/01/21 12:00 Hydrocortisone Sod Succinate [Solu-CORTEF] 100 mg IV DAILY 04/01/21 12:15 Petrolatum,White [Aquaphor with Natural Healing] See Dose Instructions TOP DAILY 04/01/21 13:00 Dextrose 50% in Water 50 ml Lactated Ringers [Ringers, Lactated] 1,000 ml IV Q10H 04/01/21 16:25 Lidocaine 5% [Lidoderm 5%] 700 mg TOP DAILY PRN 04/01/21 16:45 Insert [place] Catheter [Insert Urinary Catheter] [OM.PC] ONETIME 04/01/21 19:27 Communication Order [RC] PRN 04/01/21 19:29 Urinary Catheter Assessment [RC] ASDIRECTED 04/02/21 08:37 OCCULT BLOOD DIAGNOSTIC [OP] Routine 04/02/21 09:00 Folic Acid 1 mg PO DAILY 04/03/21 05:11 BASIC METABOLIC PANEL,BMP [CHEM] AM CBC WITH AUTO DIFF [HEME] AM TSH [CHEM] AM 04/04/21 05:11 BASIC METABOLIC PANEL,BMP [CHEM] AM - Plan Plan:: Assessment: 1. Significant hypothyroidism:improving 2. Normocytic anemia:stable 3. Mild hyponatremia 4. Acute kidney injury 5. Transaminitis AST >ALT 6. Elevated creatinine kinase 7. Severe calorie deficiency 8. Decubitus ulcer 9. Tobacco abuse 10. Daily alcohol use 11. Past medical history: Type 2 diabetes 12 Neurogenic bladder Plan 1. Symptomatic hypothyroidism: Ongoing and worsening most likely a chronic issue for quite some time. continue with 50 mcg IV levothyroxine daily and adjust accordingly; TSH improving (now 14) Continue daily 50 mg Hydrocortisone ; Continue to monitor for response. Concerns about low appetite, calorie/protein deficiency could be related to significant hypothyroidism; will continue to monitor. 2. Normocytic anemia:dropped to 7.7; stool guaic positive; 1 unit PRBC ordered; recheck H&H thereafter; monitor for response 4. SHAHEEN: Continue IV fluids; recheck BMP in a.m. 5. Transaminitis: Alcohol use pattern; continue CIWA/Ativan protocol; continue IV fluids multivitamin and thiamine. 6. Significant caloric deficiency with low muscle mass: Ongoing chronic issue for many months; possibly as early as 2018; continue IV administration of thyroid medication, switch to full regular diet to encourage caloric intake; Continue to monitor electrolytes/cardiac function to avoid refeeding syndrome; Encourage ensure shakes Will trial Marinol for appetite stimulation. PT ordered for bedside strengthening Neurogenic bladder w. overflow incontinence: concerns about repeated episodes of retention despite q6hr straight -catheterization; 400-500 cc retained on multiple times; discussed risks benefits of chronic indwelling catheter; pt and family will discuss this and make a decision; family however is reluctant to go down this rouite at this time SHAHEEN noted but still reluctant to have a catheter in place 7. Multiple areas of skin breakdown: Lower back/sacrum/gluteal cleft: Skin breakdown from low muscle mass and decreased activity; no apparent signs of infection; will offload with padding and enterostomal care has been ordered. recommended Eucerin cream for feet; ordered Bilateral feet: Skin cracking with eschar noted over right foot and left plantar aspect; no overt signs of infection but tenderness is noted; may consider imaging however no overt signs of infection right now including no elevated white count. 8. Tobacco abuse: Half pack per day; 7 mcg nicotine patch ordered 9. Past medical history/type 2 diabetes: Hold all medications; monitor blood glucose
[2021-04-02] MEDS: DEXTROSE 50% IV SCH ×2 (11:58)
[2021-04-02] MEDS: LACTATED RINGERS IV SCH ×2 (11:58)
[2021-04-02] MEDS: WATER IV SCH ×2 (11:58)
[2021-04-02] MEDS: Levothyroxine 50 MCG in Sodium Chloride 0.9% 2.5 ML IV SCH (11:59)
[2021-04-02] MEDS: Dronabinol 2.5 MG Cap PO SCH ×2 (13:02→20:52)
[2021-04-02] MEDS: Acetaminophen 325 MG Tab PO PRN (22:53)
[2021-04-03] MEDS: LACTATED RINGERS IV SCH ×12 (01:21→22:46)
[2021-04-03] MEDS: DEXTROSE 50% IV SCH ×12 (01:21→22:46)
[2021-04-03] MEDS: WATER IV SCH ×12 (01:21→22:46)
[2021-04-03 07:21] LABS: BLOOD UREA NITROGEN,BUN 28 mg/dL (7.0-18.0); CARBON DIOXIDE,CO2 19.4 mmol/L (21.0-32.0); CHLORIDE,CL 105 mmol/L (98-107); GLUCOSE RANDOM 197 mg/dL (74-106); POTASSIUM,K 3.6 mmol/L (3.5-5.1); SODIUM,NA 135 mmol/L (136-148)
[2021-04-03] MEDS: Insulin Aspart 100 Units/ML 3 ML Pen SUBCUT SCH ×3 (08:45→18:04)
[2021-04-03] MEDS: Petrolatum,White Ointment 50 GM Tube TOP SCH (08:46)
[2021-04-03] MEDS: Folic Acid 1 MG Tab PO SCH (08:47)
[2021-04-03] MEDS: Dronabinol 2.5 MG Cap PO SCH ×2 (08:47→22:35)
[2021-04-03] MEDS: buPROPion 150 MG Tab.SR PO SCH (08:47)
[2021-04-03] MEDS: Multivitamin Tab PO SCH (08:48)
[2021-04-03] MEDS: Nicotine 7 MG/24 Hr Patch TRDERM SCH (08:48)
[2021-04-03] MEDS: Hydrocortisone Sodium Succinate 100 MG/2 ML SDV IV SCH (08:49)
[2021-04-03] MEDS: Levothyroxine 50 MCG in Sodium Chloride 0.9% 2.5 ML IV SCH (09:06)
--- NOTE | 2021-04-03 11:20 | PCM.PN ---
- General Info Date of Service: 04/03/21 Subjective Update: Bedside: endorses feeling better but still weak; no other new complaints - Review of Systems General: Reports: Weakness, Fatigue Cardiovascular: Reports: No Symptoms Gastrointestinal: Reports: No Symptoms Neurological: Reports: No Symptoms - Patient Data Vitals - Most Recent: Last Vital Signs Temp 96.7 F L 04/03/21 08:00 Pulse 63 04/03/21 08:00 Resp 12 04/03/21 08:00 BP 138/78 04/03/21 08:00 Pulse Ox 99 04/03/21 08:00 Weight - Most Recent: 34.473 kg I&O - Last 24 Hours: Intake & Output 04/02/21 04/03/21 04/03/21 22:59 06:59 14:59 Intake Total 461 175 Output Total 650 725 Balance -189 -550 Lab Results Last 24 Hours: Laboratory Results - last 24 hr 04/02/21 04/02/21 04/02/21 Range/Units 11:58 12:59 17:21 WBC (4.0-11.0) K/uL RBC (4.50-5.90) M/uL Hgb (13.0-17.0) g/dL Hct (38.0-50.0) % MCV (80.0-98.0) fL MCH (27.0-32.0) pg MCHC (31.0-37.0) g/dL RDW Std Deviation (28.0-62.0) fl RDW Coeff of Ashley (11.0-15.0) % Plt Count (150-400) K/uL MPV (7.40-12.00) fL Neut % (Auto) (48.0-80.0) % Lymph % (Auto) (16.0-40.0) % [place] % (Auto) (0.0-15.0) % Eos % (Auto) (0.0-7.0) % Baso % (Auto) (0.0-1.5) % Neut # (Auto) (1.4-5.7) K/uL Lymph # (Auto) (0.6-2.4) K/uL [place] # (Auto) (0.0-0.8) K/uL Eos # (Auto) (0.0-0.7) K/uL Baso # (Auto) (0.0-0.1) K/uL Nucleated RBC % /100WBC Nucleated RBCs # K/uL Sodium (136-148) mmol/L Potassium (3.5-5.1) mmol/L Chloride (98-107) mmol/L Carbon Dioxide (21.0-32.0) mmol/L BUN (7.0-18.0) mg/dL Creatinine (0.8-1.3) mg/dL Est Cr Clr Drug Dosing mL/min Estimated GFR (MDRD) ml/min Glucose (74-106) mg/dL POC Glucose 256 H 178 H (70-99) mg/dL Calcium (8.5-10.1) mg/dL TSH 3rd Generation (0.36-3.74) uIU/mL Blood Type O POSITIVE Antibody Screen NEGATIVE Crossmatch See Detail 04/03/21 04/03/21 04/03/21 Range/Units 06:40 06:40 07:08 WBC 8.97 (4.0-11.0) K/uL RBC 3.16 L (4.50-5.90) M/uL Hgb 9.5 L (13.0-17.0) g/dL Hct 26.7 L (38.0-50.0) % MCV 84.5 (80.0-98.0) fL MCH 30.1 (27.0-32.0) pg MCHC 35.6 (31.0-37.0) g/dL RDW Std Deviation 49.2 (28.0-62.0) fl RDW Coeff of Ashley 16 H (11.0-15.0) % Plt Count 149 L (150-400) K/uL MPV 9.80 (7.40-12.00) fL Neut % (Auto) 72.1 (48.0-80.0) % Lymph % (Auto) 21.1 (16.0-40.0) % [place] % (Auto) 6.4 (0.0-15.0) % Eos % (Auto) 0.2 (0.0-7.0) % Baso % (Auto) 0.2 (0.0-1.5) % Neut # (Auto) 6.5 H (1.4-5.7) K/uL Lymph # (Auto) 1.9 (0.6-2.4) K/uL [place] # (Auto) 0.6 (0.0-0.8) K/uL Eos # (Auto) 0.0 (0.0-0.7) K/uL Baso # (Auto) 0.0 (0.0-0.1) K/uL Nucleated RBC % 0.0 /100WBC Nucleated RBCs # 0 K/uL Sodium 135 L (136-148) mmol/L Potassium 3.6 (3.5-5.1) mmol/L Chloride 105 (98-107) mmol/L Carbon Dioxide 19.4 L (21.0-32.0) mmol/L BUN 28 H (7.0-18.0) mg/dL Creatinine 1.1 (0.8-1.3) mg/dL Est Cr Clr Drug Dosing 28.73 mL/min Estimated GFR (MDRD) > 60.0 ml/min Glucose 197 H (74-106) mg/dL POC Glucose 171 H (70-99) mg/dL Calcium 7.3 L (8.5-10.1) mg/dL TSH 3rd Generation 14.20 H (0.36-3.74) uIU/mL Blood Type Antibody Screen Crossmatch Jonathon Results Last 24 Hours: Microbiology 04/02/21 19:40 Stool Occult Blood (JONATHON) - Final Stool / Feces NEGATIVE OCCULT BLOOD REFERENCE RANGE: NEGATIVE Med Orders - Current: Current Medications Acetaminophen (Acetaminophen 325 Mg Tab) 650 mg PO Q4H PRN PRN Reason: Pain (Mild 1-3)/fever Last Admin: 04/02/21 22:53 Dose: 650 mg Documented by: Bupropion HCl (Bupropion 150 Mg Tab.Sr) 150 mg PO DAILY [facility] Last Admin: 04/03/21 08:47 Dose: 150 mg Documented by: Dextrose/Water (50% Dextrose In Water 50 Ml Syringe) 50 ml IV ASDIRECTED PRN PRN Reason: Hypoglycemia Dronabinol (Dronabinol 2.5 Mg Cap) 2.5 mg PO BID [facility] Last Admin: 04/03/21 08:47 Dose: 2.5 mg Documented by: Folic Acid (Folic Acid 1 Mg Tab) 1 mg PO DAILY [facility] Last Admin: 04/03/21 08:47 Dose: 1 mg Documented by: Glucagon (Glucagon,Human Recombinant 1 Mg Vial) 1 mg IM ASDIRECTED PRN PRN Reason: Hypoglycemia Hydrocortisone Sodium Succinate (Hydrocortisone Sodium Succinate 100 Mg/2 Ml Sdv) 100 mg IV DAILY [facility] Last Admin: 04/03/21 08:49 Dose: 100 mg Documented by: Dextrose/Lactated Ringer's (Dextrose 5%-Lactated Ringers) 1,000 mls @ 100 mls/hr IV ASDIRECTED [facility] Last Admin: 04/01/21 01:39 Dose: 100 mls/hr Documented by: Levothyroxine Sodium 50 mcg/ (Sodium Chloride) 2.5 mls @ 300 mls/hr IV DAILY [facility] Last Admin: 04/03/21 09:06 Dose: 300 mls/hr Documented by: Dextrose/Water 50 ml/ Lactated (Ringer's) 1,050 mls @ 100 mls/hr IV Q10H [facility] Last Admin: 04/03/21 06:06 Dose: Not Given Documented by: Insulin Aspart (Insulin Aspart 100 Units/Ml 3 Ml Pen) 0 unit SUBCUT TIDAC [facility]; Protocol Last Admin: 04/03/21 08:45 Dose: 1 units Documented by: Lidocaine (Lidocaine 5% 700 Mg Patch) 700 mg TOP DAILY PRN PRN Reason: Pain Last Admin: 04/01/21 17:08 Dose: 700 mg Documented by: Lorazepam (Lorazepam 2 Mg/Ml Sdv) 0 mg IVPUSH Q4H PRN; Protocol PRN Reason: Withdrawal Symptoms Multivitamins/Minerals/Vitamin C (Multivitamin Tab) 1 tab PO DAILY [facility] Last Admin: 04/03/21 08:48 Dose: 1 tab Documented by: Nicotine (Nicotine 7 Mg/24 Hr Patch) 7 mg TRDERM DAILY [facility] Last Admin: 04/03/21 08:48 Dose: 7 mg Documented by: Ondansetron HCl (Ondansetron 4 Mg Tab.Dis) 4 mg PO Q4H PRN PRN Reason: nausea, able to take PO Petrolatum (Petrolatum,White Ointment 50 Gm Tube) 0 gm TOP DAILY [facility] Last Admin: 04/03/21 08:46 Dose: 1 applic Documented by: Discontinued Medications Hydrocortisone Sodium Succinate (Hydrocortisone Sodium Succinate 100 Mg/2 Ml Sdv) 100 mg IVPUSH ONETIME ONE Stop: 03/31/21 14:10 Last Admin: 03/31/21 14:23 Dose: 100 mg Documented by: Levothyroxine Sodium 100 mcg/ (Sodium Chloride) 5 mls @ 300 mls/hr IV ONETIME ONE Stop: 03/31/21 14:46 Last Admin: 03/31/21 14:38 Dose: 300 mls/hr Documented by: Thiamine HCl 100 mg/ Sodium (Chloride) 101 mls @ 202 mls/hr IV ONETIME ONE Stop: 04/02/21 09:29 Last Admin: 04/02/21 10:14 Dose: 202 mls/hr Documented by: Insulin Aspart (Insulin Aspart 100 Units/Ml 3 Ml Pen) Confirm Administered Dose 300 unit .ROUTE .STK-MED ONE Stop: 04/01/21 09:22 Last Admin: 04/01/21 09:49 Dose: 5 units Documented by: Lorazepam (Lorazepam 2 Mg/Ml Sdv) 0 mg IVPUSH ONETIME ONE; Protocol Stop: 03/31/21 18:47 Last Admin: 03/31/21 19:16 Dose: Not Given Documented by: - Exam Quality Assessment: No: Supplemental Oxygen General: Alert, Oriented, No Acute Distress HEENT: EOMI Neck: Supple Lungs: Clear to Auscultation, Normal Respiratory Effort Cardiovascular: Regular Rate GI/Abdominal Exam: Soft, Non-Tender (Male) Exam: Other (indwelling cath in-situ ) Extremities: Other (unchanged from admission ) Psy/Mental Status: Alert, Normal Mood - Patient Data Lab Results Last 24 hrs: Laboratory Results - last 24 hr 04/02/21 04/02/21 04/02/21 Range/Units 11:58 12:59 17:21 WBC (4.0-11.0) K/uL RBC (4.50-5.90) M/uL Hgb (13.0-17.0) g/dL Hct (38.0-50.0) % MCV (80.0-98.0) fL MCH (27.0-32.0) pg MCHC (31.0-37.0) g/dL RDW Std Deviation (28.0-62.0) fl RDW Coeff of Ashley (11.0-15.0) % Plt Count (150-400) K/uL MPV (7.40-12.00) fL Neut % (Auto) (48.0-80.0) % Lymph % (Auto) (16.0-40.0) % [place] % (Auto) (0.0-15.0) % Eos % (Auto) (0.0-7.0) % Baso % (Auto) (0.0-1.5) % Neut # (Auto) (1.4-5.7) K/uL Lymph # (Auto) (0.6-2.4) K/uL [place] # (Auto) (0.0-0.8) K/uL Eos # (Auto) (0.0-0.7) K/uL Baso # (Auto) (0.0-0.1) K/uL Nucleated RBC % /100WBC Nucleated RBCs # K/uL Sodium (136-148) mmol/L Potassium (3.5-5.1) mmol/L Chloride (98-107) mmol/L Carbon Dioxide (21.0-32.0) mmol/L BUN (7.0-18.0) mg/dL Creatinine (0.8-1.3) mg/dL Est Cr Clr Drug Dosing mL/min Estimated GFR (MDRD) ml/min Glucose (74-106) mg/dL POC Glucose 256 H 178 H (70-99) mg/dL Calcium (8.5-10.1) mg/dL TSH 3rd Generation (0.36-3.74) uIU/mL Blood Type O POSITIVE Antibody Screen NEGATIVE Crossmatch See Detail 04/03/21 04/03/21 04/03/21 Range/Units 06:40 06:40 07:08 WBC 8.97 (4.0-11.0) K/uL RBC 3.16 L (4.50-5.90) M/uL Hgb 9.5 L (13.0-17.0) g/dL Hct 26.7 L (38.0-50.0) % MCV 84.5 (80.0-98.0) fL MCH 30.1 (27.0-32.0) pg MCHC 35.6 (31.0-37.0) g/dL RDW Std Deviation 49.2 (28.0-62.0) fl RDW Coeff of Ashley 16 H (11.0-15.0) % Plt Count 149 L (150-400) K/uL MPV 9.80 (7.40-12.00) fL Neut % (Auto) 72.1 (48.0-80.0) % Lymph % (Auto) 21.1 (16.0-40.0) % [place] % (Auto) 6.4 (0.0-15.0) % Eos % (Auto) 0.2 (0.0-7.0) % Baso % (Auto) 0.2 (0.0-1.5) % Neut # (Auto) 6.5 H (1.4-5.7) K/uL Lymph # (Auto) 1.9 (0.6-2.4) K/uL [place] # (Auto) 0.6 (0.0-0.8) K/uL Eos # (Auto) 0.0 (0.0-0.7) K/uL Baso # (Auto) 0.0 (0.0-0.1) K/uL Nucleated RBC % 0.0 /100WBC Nucleated RBCs # 0 K/uL Sodium 135 L (136-148) mmol/L Potassium 3.6 (3.5-5.1) mmol/L Chloride 105 (98-107) mmol/L Carbon Dioxide 19.4 L (21.0-32.0) mmol/L BUN 28 H (7.0-18.0) mg/dL Creatinine 1.1 (0.8-1.3) mg/dL Est Cr Clr Drug Dosing 28.73 mL/min Estimated GFR (MDRD) > 60.0 ml/min Glucose 197 H (74-106) mg/dL POC Glucose 171 H (70-99) mg/dL Calcium 7.3 L (8.5-10.1) mg/dL TSH 3rd Generation 14.20 H (0.36-3.74) uIU/mL Blood Type Antibody Screen Crossmatch Result Diagrams: 04/03/21 06:40 04/03/21 06:40 Jonathon Results Last 24 hrs: Microbiology 04/02/21 19:40 Stool Occult Blood (JONATHON) - Final Stool / Feces NEGATIVE OCCULT BLOOD REFERENCE RANGE: NEGATIVE Sepsis Event Note - Evaluation Sepsis Screening Result: No Definite Risk - Focused Exam Vital Signs: Vital Signs Temp Pulse Resp BP Pulse Ox 04/03/21 08:00 96.7 F L 63 12 138/78 99 04/03/21 04:00 97.1 F 64 20 139/70 94 L 04/03/21 00:00 97.0 F 65 16 133/78 98 - Problem List & Annotations (1) Weakness SNOMED Code(s): 18131135 Code(s): R53.1 - WEAKNESS Status: Acute Current Visit: Yes (2) Severe calorie deficiency SNOMED Code(s): 897536147 Code(s): E43 - UNSPECIFIED SEVERE PROTEIN-CALORIE MALNUTRITION Status: Acute Current Visit: Yes (3) Severe hypothyroidism SNOMED Code(s): 55996660 Code(s): E03.8 - OTHER SPECIFIED HYPOTHYROIDISM Status: Acute Current Visit: Yes (4) Alcohol abuse SNOMED Code(s): 82050566 Code(s): F10.10 - ALCOHOL ABUSE, UNCOMPLICATED Status: Acute Current Visit: Yes (5) Diabetes mellitus SNOMED Code(s): 94390729 Code(s): E11.9 - TYPE 2 DIABETES MELLITUS WITHOUT COMPLICATIONS Status: Acute Current Visit: No - Problem List Review Problem List Initiated/Reviewed/Updated: Yes - My Orders Last 24 Hours: My Active Orders 04/02/21 11:45 dronabinoL [Marinol] 2.5 mg PO BID 04/04/21 05:11 BASIC METABOLIC PANEL,BMP [CHEM] AM - Plan Plan:: Assessment: 1. Significant hypothyroidism:improving 2. Normocytic anemia:stable 3. Mild hyponatremia:improving 4. Acute kidney injury:resolved 5. Transaminitis AST >ALT 6. Elevated creatinine kinase:improved 7. Severe calorie deficiency 8. Decubitus ulcer 9. Tobacco abuse 10. Daily alcohol use 11. Past medical history: Type 2 diabetes 12 Neurogenic bladder Plan 1. Symptomatic hypothyroidism: continue with 50 mcg IV levothyroxine daily and adjust accordingly; TSH improving albeit slowly Continue daily 50 mg Hydrocortisone ; Continue to monitor for response. . 2. Normocytic anemia:improved; continue to monitor post 1 unit PRBC 4. SHAHEEN: Continue IV fluids; recheck BMP in a.m. 5. Transaminitis: Alcohol use pattern; continue CIWA/Ativan protocol; continue IV fluids multivitamin and thiamine. 6. Significant caloric deficiency with low muscle mass: Ongoing chronic issue for many months; possibly as early as 2017; continue IV administration of thyroid medication, switch to full regular diet to encourage caloric intake; Continue to monitor electrolytes/cardiac function to avoid refeeding syndrome; Encourage ensure shakes Continue Marinol for appetite stimulation. PT ordered for bedside strengthening : able to ambulate w. walker , slowly but is capable of moving in room for short distances Neurogenic bladder w. overflow incontinence: indwelling catheter placed and tolerated; may require outpatient PCP evaluation for determination of continuation ; risks and benefits of chronic indwelling catheter explained to patient and f marciano 7. Multiple areas of skin breakdown: Lower back/sacrum/gluteal cleft: Skin breakdown from low muscle mass and decreased activity; no apparent signs of infection; will offload with padding a nd enterostomal care has been ordered. recommended Eucerin cream for feet; ordered Bilateral feet: Skin cracking with eschar noted over right foot and left plantar aspect; no overt signs of infection but tenderness is noted; may consider imaging however no overt signs of infection right now including no elevated white count. 8. Tobacco abuse: Half pack per day; 7 mcg nicotine patch ordered 9. Past medical history/type 2 diabetes: Hold all medications; monitor blood glucose Extensive conversation held with regarding pts goals of care. pt is still neurologically intact, slow, but lucid. Will recommend outpatient palliative consult to discuss goals of care at discharge. will continue to talk to regarding this matter as he is still weak from his current hospitalization. Concerns regarding etiology of significant weight loss brought up with patient and family and this has never been addressed prior as he has not been seen by his PCP since August 2020; if pt. would like to pursue this; will require close follow up and multidisciplinary care. In the interim, home health services will be consulted to ensure peters care, medication administration and feeding.
[2021-04-03] MEDS: Acetaminophen 325 MG Tab PO PRN (22:43)
[2021-04-04 06:57] LABS: BLOOD UREA NITROGEN,BUN 20 mg/dL (7.0-18.0); CARBON DIOXIDE,CO2 19.7 mmol/L (21.0-32.0); CHLORIDE,CL 102 mmol/L (98-107); GLUCOSE RANDOM 275 mg/dL (74-106); POTASSIUM,K 3.3 mmol/L (3.5-5.1); SODIUM,NA 134 mmol/L (136-148)
[2021-04-04] MEDS ORDERED: Potassium Chloride 20 MEQ Tab.ER PO ONE (08:20)
[2021-04-04] MEDS: Insulin Aspart 100 Units/ML 3 ML Pen SUBCUT SCH ×2 (08:49→12:03)
[2021-04-04] MEDS: Levothyroxine 50 MCG in Sodium Chloride 0.9% 2.5 ML IV SCH (08:56)
[2021-04-04] MEDS: Multivitamin Tab PO SCH (09:00)
[2021-04-04] MEDS: Folic Acid 1 MG Tab PO SCH (09:00)
[2021-04-04] MEDS: Dronabinol 2.5 MG Cap PO SCH (09:00)
[2021-04-04] MEDS: buPROPion 150 MG Tab.SR PO SCH (09:00)
[2021-04-04] MEDS: Nicotine 7 MG/24 Hr Patch TRDERM SCH (09:04)
[2021-04-04] MEDS: Petrolatum,White Ointment 50 GM Tube TOP SCH (09:07)
[2021-04-04] MEDS: Hydrocortisone Sodium Succinate 100 MG/2 ML SDV IV SCH (09:13)
[2021-04-04] MEDS: DEXTROSE 50% IV SCH ×2 (12:03)
[2021-04-04] MEDS: WATER IV SCH ×2 (12:03)
[2021-04-04] MEDS: LACTATED RINGERS IV SCH ×2 (12:03)
--- NOTE | 2021-04-04 12:30 | PCM.DCSUM1 ---
<Roque Turcios - Last Filed: 04/04/21 13:37> Discharge Summary - Hospital Course Free Text/Narrative:: Patient is a 75-year-old male with a significant past medical history of type 2 diabetes, daily alcohol use, tobacco abuse and unexplained weight loss since August 2020: Presenting today with daughter's recommendation secondary to low blood sugar. Blood glucose this morning per daughter was 24 and episodes of hypoglycemia and dizziness have been ongoing since September 2020. Ambulatory dysfunction with increased episodes of falls were always attributed to low blood glucose especially since patient did respond to food/carbohydrate rich liquids thereafter. Patient will that was last seen by his primary care back in August 2020. Daughter endorses a fall 2 weeks prior causing abrasion over left scalp; this was an unwitnessed fall and patient did not have any subsequent symptoms per daughter. Since he seemed at baseline per daughter; they did not proceed to the ED at that time. Of note patient also did not take any of his diabetic medications including his Metformin and glimepiride for the past 3 weeks secondary to his low blood sugars. Alcohol use: 1-2 Guinness/beer per night with beer/wine Has been using edible marijuana treats to help increase appetite x 1 -month but this has not been helping. Weight loss: Patient is currently 77 pounds but was 95 pounds per daughter in August 2020 ED course: Blood pressure 107/59, bradycardia with a pulse rate of 56. Low temperature of 94.9 Lethargic Chest x-ray: Hyperinflation chronic interstitial change without evidence of dense consolidation CT head: No acute sign of acute injury and or significant findings Labs: Mild hyponatremia of 131. SHAHEEN of 1.9. Significantly elevated TSH of 29.89 and a free T4 0.75. Hospital course: 75-year-old male admitted for significant hypothyroidism, failure to thrive, weakness/fatigue and calorie deficiency; was continued on IV Synthroid 50 mcg and IV hydrocortisone daily till discharge. Home medications of Metformin/glime piride were held and patient was also started on CIWA/Ativan protocol secondary to concerns about alcohol use while at home. Throughout stay patient mentation improved and calorie intake had also improved since the TSH levels down trended with the final TSH (12) prior to discharge at. Stool guaiac was positive with a hemoglobin at 7.7 at its lowest; patient was given 1 unit PRBCs with subsequent increase to 9.5 and 10.3 hemoglobin on day of discharge.. Throughout stay patient was mentating more lucidly and was able to have more expansive conversations and appeared as lethargic as he did on admission. PT evaluation: Patient was able to ambulate albeit with a walker for short distances. Patient however is still severely significantly weak and fatigued. Discussed with goals of care as patient may not tolerate aggressive interventions including surgeries. Follow-up with primary care was established following week and advised to recheck his TSH within the following week. Home medication of glimepiride was held and advised to reduce Metformin to 1 tab daily. Patient will be sent home on levothyroxine 75 mcg p.o. daily and also Marinol p.o. secondary to his response to this medication in the hospital setting. Patient was advised to discontinue tobacco/alcohol use and to follow- up primary care about goals of care. Patient also did have urinary retention with a urinary scan at 500 cc. Multiple episodes of straight cath was performed however was ultimately decided to place a indwelling catheter. Patient will follow with outside primary care for possible continuation/removal of catheter. Home health care ordered for wound care, peters care and medication administration Discussed need for continue home health support; pt and agreed Wound care: sacral stage 1 ulcers noted , bilateral feet requires care for dry skin, toenail care and concerns about developing ulcer (1 cm ulcer w. eschar; no discharge noted) padding provided to patient to help avoid further skin breakdown of lower back pt and family requested discharge. Pt discharged home in stable condition. - Discharge Data Discharge Date: 04/04/21 Discharge Disposition: Home, Self-Care 01 Condition: Fair - Referral to Home Health Date of Face to Face Encounter: 04/04/21 Reason for Homebound Status: Homebound: unsteady gait, weakness/fatigue. severe hypothyroidism and calorie defeciency; failure to thrive. weakness+ deco nditioning. Requires wound care : stage I ulces over sacrum and bilatearly feet care. INdwelling catheter care required. monitor medication admisintration; meal time , calorie intake. requires at home physical therapy/ occupational therapy. high fall risk Primary Care Physician: PCP None Skilled Need: PT/OT. wound care. peters care - Discharge Diagnosis/Problem(s) (1) Weakness SNOMED Code(s): 46539790 ICD Code: R53.1 - WEAKNESS Status: Acute (2) Severe calorie deficiency SNOMED Code(s): 381155015 ICD Code: E43 - UNSPECIFIED SEVERE PROTEIN-CALORIE MALNUTRITION Status: Acute (3) Severe hypothyroidism SNOMED Code(s): 64273252 ICD Code: E03.8 - OTHER SPECIFIED HYPOTHYROIDISM Status: Acute (4) Alcohol abuse SNOMED Code(s): 11129120 ICD Code: F10.10 - ALCOHOL ABUSE, UNCOMPLICATED Status: Acute (5) Diabetes mellitus SNOMED Code(s): 00491037 ICD Code: E11.9 - TYPE 2 DIABETES MELLITUS WITHOUT COMPLICATIONS Status: Acute - Patient Summary/Data Consults: Consultations 03/31/21 18:36 Consult to Wound Care Services [CONS] Routine 04/03/21 11:20 Consult to Physical Therapy [PT Evaluation and Treatment] [CONS] Routine 04/04/21 12:28 Consult to Hospice [CONS] Routine - Patient Instructions Diet: Regular Diet as Tolerated Notify Provider of: Nausea and/or Vomiting - Discharge Plan Prescriptions/Med Rec: metFORMIN [Glucophage XR] 500 mg PO DAILY 30 Days #30 tab.er dronabinoL [Marinol] 2.5 mg PO BID 30 Days #60 cap Levothyroxine Sodium [Synthroid] 75 mcg PO ACBREAKFAST 30 Days #30 tab Home Medications: Home Meds Albuterol Sulfate 1 puff IN ASDIRECTED 03/31/21 [History] buPROPion HCL [Bupropion HCl Sr] 150 mg PO DAILY 03/31/21 [History] Acetaminophen [Tylenol] 650 mg PO Q4H PRN tablet 04/04/21 [Rx] Folic Acid 1 mg PO DAILY tablet 04/04/21 [Rx] Levothyroxine Sodium [Synthroid] 75 mcg PO ACBREAKFAST 30 Days #30 tab 04/04/21 [Rx] Multivitamins [Tab-A-Nacho] 1 tab PO DAILY tablet 04/04/21 [Rx] Nicotine [Habitrol] 7 mg TRDERM DAILY patch 04/04/21 [Rx] dronabinoL [Marinol] 2.5 mg PO BID 30 Days #60 cap 04/04/21 [Rx] metFORMIN [Glucophage XR] 500 mg PO DAILY 30 Days #30 tab.er 04/04/21 [Rx] Oxygen Therapy Mode: Room Air Patient Handouts: Acute Kidney Injury, Adult, Preventing Hypoglycemia, Levo thyroxine tablets, Dronabinol, THC capsules, Hypothyroidism, Indwelling Urinary Catheter Care, Adult, [id number], Metformin tablets, Hypoglycemia, [id number] Referrals: Bertin Moncada MD [Ordering Only Provider] - 04/08/21 11:00 am - Discharge Summary/Plan Comment DC Time >30 min.: No - Patient Data Vitals - Most Recent: Last Vital Signs Temp 97.3 F 04/04/21 09:18 Pulse 64 04/04/21 09:18 Resp 17 04/04/21 09:18 BP 117/73 04/04/21 09:18 Pulse Ox 97 04/04/21 09:18 Weight - Most Recent: 34.473 kg I&O - Last 24 hours: Intake & Output 04/03/21 04/04/21 04/04/21 22:59 06:59 14:59 Intake Total 2893 300 Output Total 450 500 Balance 2443 -200 Lab Results - Last 24 hrs: Laboratory Results - last 24 hr 04/03/21 04/03/21 04/04/21 Range/Units 12:04 18:00 06:05 WBC (4.0-11.0) K/uL RBC (4.50-5.90) M/uL Hgb (13.0-17.0) g/dL Hct (38.0-50.0) % MCV (80.0-98.0) fL MCH (27.0-32.0) pg MCHC (31.0-37.0) g/dL RDW Std Deviation (28.0-62.0) fl RDW Coeff of Ashley (11.0-15.0) % Plt Count (150-400) K/uL MPV (7.40-12.00) fL Neut % (Auto) (48.0-80.0) % Lymph % (Auto) (16.0-40.0) % Walker % (Auto) (0.0-15.0) % Eos % (Auto) (0.0-7.0) % Baso % (Auto) (0.0-1.5) % Neut # (Auto) (1.4-5.7) K/uL Lymph # (Auto) (0.6-2.4) K/uL Walker # (Auto) (0.0-0.8) K/uL Eos # (Auto) (0.0-0.7) K/uL Baso # (Auto) (0.0-0.1) K/uL Nucleated RBC % /100WBC Nucleated RBCs # K/uL Sodium 134 L (136-148) mmol/L Potassium 3.3 L (3.5-5.1) mmol/L Chloride 102 (98-107) mmol/L Carbon Dioxide 19.7 L (21.0-32.0) mmol/L BUN 20 H (7.0-18.0) mg/dL Creatinine 0.9 (0.8-1.3) mg/dL Est Cr Clr Drug Dosing 35.11 mL/min Estimated GFR (MDRD) > 60.0 ml/min Glucose 275 H (74-106) mg/dL POC Glucose 208 H 274 H (70-99) mg/dL Calcium 7.0 L (8.5-10.1) mg/dL TSH 3rd Generation 12.74 H (0.36-3.74) uIU/mL 04/04/21 04/04/21 04/04/21 Range/Units 06:05 07:03 11:50 WBC 7.49 (4.0-11.0) K/uL RBC 3.39 L (4.50-5.90) M/uL Hgb 10.3 L (13.0-17.0) g/dL Hct 28.8 L (38.0-50.0) % MCV 85.0 (80.0-98.0) fL MCH 30.4 (27.0-32.0) pg MCHC 35.8 (31.0-37.0) g/dL RDW Std Deviation 49.8 (28.0-62.0) fl RDW Coeff of Ashley 16 H (11.0-15.0) % Plt Count 168 (150-400) K/uL MPV 9.20 (7.40-12.00) fL Neut % (Auto) 73.3 (48.0-80.0) % Lymph % (Auto) 19.9 (16.0-40.0) % Walker % (Auto) 6.3 (0.0-15.0) % Eos % (Auto) 0.5 (0.0-7.0) % Baso % (Auto) 0.0 (0.0-1.5) % Neut # (Auto) 5.5 (1.4-5.7) K/uL Lymph # (Auto) 1.5 (0.6-2.4) K/uL Walker # (Auto) 0.5 (0.0-0.8) K/uL Eos # (Auto) 0.0 (0.0-0.7) K/uL Baso # (Auto) 0.0 (0.0-0.1) K/uL Nucleated RBC % 0.0 /100WBC Nucleated RBCs # 0 K/uL Sodium (136-148) mmol/L Potassium (3.5-5.1) mmol/L Chloride (98-107) mmol/L Carbon Dioxide (21.0-32.0) mmol/L BUN (7.0-18.0) mg/dL Creatinine (0.8-1.3) mg/dL Est Cr Clr Drug Dosing mL/min Estimated GFR (MDRD) ml/min Glucose (74-106) mg/dL POC Glucose 241 H 294 H (70-99) mg/dL Calcium (8.5-10.1) mg/dL TSH 3rd Generation (0.36-3.74) uIU/mL Med Orders - Current: Current Medications Acetaminophen (Acetaminophen 325 Mg Tab) 650 mg PO Q4H PRN PRN Reason: Pain (Mild 1-3)/fever Last Admin: 04/03/21 22:43 Dose: 650 mg Documented by: Bupropion HCl (Bupropion 150 Mg Tab.Sr) 150 mg PO DAILY [facility] Last Admin: 04/04/21 09:00 Dose: 150 mg Documented by: Dextrose/Water (50% Dextrose In Water 50 Ml Syringe) 50 ml IV ASDIRECTED PRN PRN Reason: Hypoglycemia Dronabinol (Dronabinol 2.5 Mg Cap) 2.5 mg PO BID [facility] Last Admin: 04/04/21 09:00 Dose: 2.5 mg Documented by: Folic Acid (Folic Acid 1 Mg Tab) 1 mg PO DAILY [facility] Last Admin: 04/04/21 09:00 Dose: 1 mg Documented by: Glucagon (Glucagon,Human Recombinant 1 Mg Vial) 1 mg IM ASDIRECTED PRN PRN Reason: Hypoglycemia Hydrocortisone Sodium Succinate (Hydrocortisone Sodium Succinate 100 Mg/2 Ml Sdv) 100 mg IV DAILY [facility] Last Admin: 04/04/21 09:13 Dose: 100 mg Documented by: Dextrose/Lactated Ringer's (Dextrose 5%-Lactated Ringers) 1,000 mls @ 100 mls/hr IV ASDIRECTED [facility] Last Admin: 04/01/21 01:39 Dose: 100 mls/hr Documented by: Levothyroxine Sodium 50 mcg/ (Sodium Chloride) 2.5 mls @ 300 mls/hr IV DAILY [facility] Last Admin: 04/04/21 08:56 Dose: 300 mls/hr Documented by: Dextrose/Water 50 ml/ Lactated (Ringer's) 1,050 mls @ 100 mls/hr IV Q10H [facility] Last Admin: 04/04/21 12:03 Dose: Not Given Documented by: Insulin Aspart (Insulin Aspart 100 Units/Ml 3 Ml Pen) 0 unit SUBCUT TIDAC [facility]; Protocol Last Admin: 04/04/21 12:03 Dose: 3 units Documented by: Lidocaine (Lidocaine 5% 700 Mg Patch) 700 mg TOP DAILY PRN PRN Reason: Pain Last Admin: 04/01/21 17:08 Dose: 700 mg Documented by: Lorazepam (Lorazepam 2 Mg/Ml Sdv) 0 mg IVPUSH Q4H PRN; Protocol PRN Reason: Withdrawal Symptoms Multivitamins/Minerals/Vitamin C (Multivitamin Tab) 1 tab PO DAILY [facility] Last Admin: 04/04/21 09:00 Dose: 1 tab Documented by: Nicotine (Nicotine 7 Mg/24 Hr Patch) 7 mg TRDERM DAILY [facility] Last Admin: 04/04/21 09:04 Dose: 7 mg Documented by: Ondansetron HCl (Ondansetron 4 Mg Tab.Dis) 4 mg PO Q4H PRN PRN Reason: nausea, able to take PO Petrolatum (Petrolatum,White Ointment 50 Gm Tube) 0 gm TOP DAILY [facility] Last Admin: 04/04/21 09:07 Dose: 1 applic Documented by: Discontinued Medications Hydrocortisone Sodium Succinate (Hydrocortisone Sodium Succinate 100 Mg/2 Ml Sdv) 100 mg IVPUSH ONETIME ONE Stop: 03/31/21 14:10 Last Admin: 03/31/21 14:23 Dose: 100 mg Documented by: Levothyroxine Sodium 100 mcg/ (Sodium Chloride) 5 mls @ 300 mls/hr IV ONETIME ONE Stop: 03/31/21 14:46 Last Admin: 03/31/21 14:38 Dose: 300 mls/hr Documented by: Thiamine HCl 100 mg/ Sodium (Chloride) 101 mls @ 202 mls/hr IV ONETIME ONE Stop: 04/02/21 09:29 Last Admin: 04/02/21 10:14 Dose: 202 mls/hr Documented by: Insulin Aspart (Insulin Aspart 100 Units/Ml 3 Ml Pen) Confirm Administered Dose 300 unit .ROUTE .STK-MED ONE Stop: 04/01/21 09:22 Last Admin: 04/01/21 09:49 Dose: 5 units Documented by: Lorazepam (Lorazepam 2 Mg/Ml Sdv) 0 mg IVPUSH ONETIME ONE; Protocol Stop: 03/31/21 18:47 Last Admin: 03/31/21 19:16 Dose: Not Given Documented by: Potassium Chloride (Potassium Chloride 20 Meq Tab.Er) 40 meq PO ONETIME ONE Stop: 04/04/21 08:21 Last Admin: 04/04/21 08:52 Dose: 40 meq Documented by: <Soledad Mendoza - Last Filed: 04/04/21 16:57> Discharge Summary - Hospital Course Free Text/Narrative:: I have seen and evaluated the patient. I have discussed findings and treatment plan with resident. I agree with the assessment and plan in the following note. - Referral to Home Health Primary Care Physician: PCP None - Patient Summary/Data Consults: Consultations 03/31/21 18:36 Consult to Wound Care Services [CONS] Routine 04/03/21 11:20 Consult to Physical Therapy [PT Evaluation and Treatment] [CONS] Routine 04/04/21 12:28 Consult to Hospice [CONS] Routine - Patient Data Vitals - Most Recent: Last Vital Signs Temp 36.1 C 04/04/21 12:33 Pulse 81 04/04/21 12:33 Resp 18 04/04/21 12:33 BP 104/67 04/04/21 12:33 Pulse Ox 98 04/04/21 12:33 I&O - Last 24 hours: Intake & Output 04/04/21 04/04/21 04/04/21 06:59 14:59 22:59 Intake Total 300 180 Output Total 500 200 Balance -200 -20 Lab Results - Last 24 hrs: Laboratory Results - last 24 hr 04/03/21 04/04/21 04/04/21 Range/Units 18:00 06:05 06:05 WBC 7.49 (4.0-11.0) K/uL RBC 3.39 L (4.50-5.90) M/uL Hgb 10.3 L (13.0-17.0) g/dL Hct 28.8 L (38.0-50.0) % MCV 85.0 (80.0-98.0) fL MCH 30.4 (27.0-32.0) pg MCHC 35.8 (31.0-37.0) g/dL RDW Std Deviation 49.8 (28.0-62.0) fl RDW Coeff of Ashley 16 H (11.0-15.0) % Plt Count 168 (150-400) K/uL MPV 9.20 (7.40-12.00) fL Neut % (Auto) 73.3 (48.0-80.0) % Lymph % (Auto) 19.9 (16.0-40.0) % Walker % (Auto) 6.3 (0.0-15.0) % Eos % (Auto) 0.5 (0.0-7.0) % Baso % (Auto) 0.0 (0.0-1.5) % Neut # (Auto) 5.5 (1.4-5.7) K/uL Lymph # (Auto) 1.5 (0.6-2.4) K/uL Walker # (Auto) 0.5 (0.0-0.8) K/uL Eos # (Auto) 0.0 (0.0-0.7) K/uL Baso # (Auto) 0.0 (0.0-0.1) K/uL Nucleated RBC % 0.0 /100WBC Nucleated RBCs # 0 K/uL Sodium 134 L (136-148) mmol/L Potassium 3.3 L (3.5-5.1) mmol/L Chloride 102 (98-107) mmol/L Carbon Dioxide 19.7 L (21.0-32.0) mmol/L BUN 20 H (7.0-18.0) mg/dL Creatinine 0.9 (0.8-1.3) mg/dL Est Cr Clr Drug Dosing 35.11 mL/min Estimated GFR (MDRD) > 60.0 ml/min Glucose 275 H (74-106) mg/dL POC Glucose 274 H (70-99) mg/dL Calcium 7.0 L (8.5-10.1) mg/dL TSH 3rd Generation 12.74 H (0.36-3.74) uIU/mL 04/04/21 04/04/21 Range/Units 07:03 11:50 WBC (4.0-11.0) K/uL RBC (4.50-5.90) M/uL Hgb (13.0-17.0) g/dL Hct (38.0-50.0) % MCV (80.0-98.0) fL MCH (27.0-32.0) pg MCHC (31.0-37.0) g/dL RDW Std Deviation (28.0-62.0) fl RDW Coeff of Ashley (11.0-15.0) % Plt Count (150-400) K/uL MPV (7.40-12.00) fL Neut % (Auto) (48.0-80.0) % Lymph % (Auto) (16.0-40.0) % Walker % (Auto) (0.0-15.0) % Eos % (Auto) (0.0-7.0) % Baso % (Auto) (0.0-1.5) % Neut # (Auto) (1.4-5.7) K/uL Lymph # (Auto) (0.6-2.4) K/uL Walker # (Auto) (0.0-0.8) K/uL Eos # (Auto) (0.0-0.7) K/uL Baso # (Auto) (0.0-0.1) K/uL Nucleated RBC % /100WBC Nucleated RBCs # K/uL Sodium (136-148) mmol/L Potassium (3.5-5.1) mmol/L Chloride (98-107) mmol/L Carbon Dioxide (21.0-32.0) mmol/L BUN (7.0-18.0) mg/dL Creatinine (0.8-1.3) mg/dL Est Cr Clr Drug Dosing mL/min Estimated GFR (MDRD) ml/min Glucose (74-106) mg/dL POC Glucose 241 H 294 H (70-99) mg/dL Calcium (8.5-10.1) mg/dL TSH 3rd Generation (0.36-3.74) uIU/mL Med Orders - Current: Current Medications Discontinued Medications Acetaminophen (Acetaminophen 325 Mg Tab) 650 mg PO Q4H PRN PRN Reason: Pain (Mild 1-3)/fever Last Admin: 04/03/21 22:43 Dose: 650 mg Documented by: Bupropion HCl (Bupropion 150 Mg Tab.Sr) 150 mg PO DAILY [facility] Last Admin: 04/04/21 09:00 Dose: 150 mg Documented by: Dextrose/Water (50% Dextrose In Water 50 Ml Syringe) 50 ml IV ASDIRECTED PRN PRN Reason: Hypoglycemia Dronabinol (Dronabinol 2.5 Mg Cap) 2.5 mg PO BID [facility] Last Admin: 04/04/21 09:00 Dose: 2.5 mg Documented by: Folic Acid (Folic Acid 1 Mg Tab) 1 mg PO DAILY [facility] Last Admin: 04/04/21 09:00 Dose: 1 mg Documented by: Glucagon (Glucagon,Human Recombinant 1 Mg Vial) 1 mg IM ASDIRECTED PRN PRN Reason: Hypoglycemia Hydrocortisone Sodium Succinate (Hydrocortisone Sodium Succinate 100 Mg/2 Ml Sdv) 100 mg IVPUSH ONETIME ONE Stop: 03/31/21 14:10 Last Admin: 03/31/21 14:23 Dose: 100 mg Documented by: Hydrocortisone Sodium Succinate (Hydrocortisone Sodium Succinate 100 Mg/2 Ml Sdv) 100 mg IV DAILY [facility] Last Admin: 04/04/21 09:13 Dose: 100 mg Documented by: Levothyroxine Sodium 100 mcg/ (Sodium Chloride) 5 mls @ 300 mls/hr IV ONETIME ONE Stop: 03/31/21 14:46 Last Admin: 03/31/21 14:38 Dose: 300 mls/hr Documented by: Dextrose/Lactated Ringer's (Dextrose 5%-Lactated Ringers) 1,000 mls @ 100 mls/hr IV ASDIRECTED [facility] Last Admin: 04/01/21 01:39 Dose: 100 mls/hr Documented by: Levothyroxine Sodium 50 mcg/ (Sodium Chloride) 2.5 mls @ 300 mls/hr IV DAILY [facility] Last Admin: 04/04/21 08:56 Dose: 300 mls/hr Documented by: Dextrose/Water 50 ml/ Lactated (Ringer's) 1,050 mls @ 100 mls/hr IV Q10H [facility] Last Admin: 04/04/21 12:03 Dose: Not Given Documented by: Thiamine HCl 100 mg/ Sodium (Chloride) 101 mls @ 202 mls/hr IV ONETIME ONE Stop: 04/02/21 09:29 Last Admin: 04/02/21 10:14 Dose: 202 mls/hr Documented by: Insulin Aspart (Insulin Aspart 100 Units/Ml 3 Ml Pen) 0 unit SUBCUT TIDAC [facility]; Protocol Last Admin: 04/04/21 12:03 Dose: 3 units Documented by: Insulin Aspart (Insulin Aspart 100 Units/Ml 3 Ml Pen) Confirm Administered Dose 300 unit .ROUTE .STK-MED ONE Stop: 04/01/21 09:22 Last Admin: 04/01/21 09:49 Dose: 5 units Documented by: Lidocaine (Lidocaine 5% 700 Mg Patch) 700 mg TOP DAILY PRN PRN Reason: Pain Last Admin: 04/01/21 17:08 Dose: 700 mg Documented by: Lorazepam (Lorazepam 2 Mg/Ml Sdv) 0 mg IVPUSH ONETIME ONE; Protocol Stop: 03/31/21 18:47 Last Admin: 03/31/21 19:16 Dose: Not Given Documented by: Lorazepam (Lorazepam 2 Mg/Ml Sdv) 0 mg IVPUSH Q4H PRN; Protocol PRN Reason: Withdrawal Symptoms Multivitamins/Minerals/Vitamin C (Multivitamin Tab) 1 tab PO DAILY [facility] Last Admin: 04/04/21 09:00 Dose: 1 tab Documented by: Nicotine (Nicotine 7 Mg/24 Hr Patch) 7 mg TRDERM DAILY [facility] Last Admin: 04/04/21 09:04 Dose: 7 mg Documented by: Ondansetron HCl (Ondansetron 4 Mg Tab.Dis) 4 mg PO Q4H PRN PRN Reason: nausea, able to take PO Petrolatum (Petrolatum,White Ointment 50 Gm Tube) 0 gm TOP DAILY [facility] Last Admin: 04/04/21 09:07 Dose: 1 applic Documented by: Potassium Chloride (Potassium Chloride 20 Meq Tab.Er) 40 meq PO ONETIME ONE Stop: 04/04/21 08:21 Last Admin: 04/04/21 08:52 Dose: 40 meq Documented by:
[2021-04-04 12:34] VITALS: BP 104/67; PULSE 81
== END 2021-04-04 13:25 | disposition home or self-care (01) | DRG 643 ==
LOC: MW.ED 12:39 → MW.MS 15:45
PROVIDERS: ADMIT Internal Medicine; ATTEND Internal Medicine
DX: T68.XXXA Hypothermia, initial encounter (principal); E03.8 Other specified hypothyroidism; E43 Unspecified severe protein-calorie malnutrition; G25.81 Restless legs syndrome; M10.9 Gout, unspecified; N17.9 Acute kidney failure, unspecified; E87.1 Hypo-osmolality and hyponatremia; H91.90 Unspecified hearing loss, unspecified ear; Z79.84 Long term (current) use of oral hypoglycemic drugs; Z79.899 Other long term (current) drug therapy; E03.9 Hypothyroidism, unspecified; Z68.1 Body mass index [BMI] 19.9 or less, adult; F10.10 Alcohol abuse, uncomplicated; E11.9 Type 2 diabetes mellitus without complications; Z79.4 Long term (current) use of insulin; I10 Essential (primary) hypertension; H54.7 Unspecified visual loss; D64.9 Anemia, unspecified; F17.210 Nicotine dependence, cigarettes, uncomplicated; L89.90 Pressure ulcer of unspecified site, unspecified stage; Z66 Do not resuscitate; Z20.822 Contact with and (suspected) exposure to COVID-19
CPT/HCPCS: 36415; 36600; 70450; 71045; 80053; 81003; 82550; 82803; 83036; 84439; 84443; 84484; 85025; 85610; 93005; J1720; J7121; U0002; 36430; 51701; 51702; 80048; 82272; 82947; 85045; 86850; 86900; 86901; 86920; 86921; 86922; 97162-GP; 99291; A9270-GY; J1815-GY; J3411; J7120; P9016; Q0167